=== PATIENT | female | born 1995 | race Caucasian/White ===

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

== ENCOUNTER 2018-07-01 20:42 | Emergency (ER) | payer SELFPAY ==
[2018-07-01 20:49] VITALS: BP 128/80
== END 2018-07-01 21:23 | disposition left against medical advice (07) ==
LOC: ED 20:42
DX: R10.9 Unspecified abdominal pain (principal); Z53.21 Procedure and treatment not carried out due to patient leaving prior to being seen by health care provider

== ENCOUNTER 2018-07-01 21:37 | Emergency (ER) | payer SELFPAY ==
--- NOTE | 2018-07-01 21:39 | UC ---
Abdominal Pain Female HPI - HPI Summary HPI Summary: nausea and burning in stomach, pepto and tums without relief--no fevrs or chills had gallbladder removed in 2016-she tells me this has been going on for a couple of years but getting worse when she eats spicy food - History of Current Complaint Chief Complaint: UCAbdominalPain Stated Complaint: ABD PAIN Time Seen by Provider: 07/01/18 21:50 Hx Obtained From: Patient Hx Last Menstrual Period: 06/22/18 ?: No Onset/Duration: Gradual Onset, Lasting Weeks Timing: Intermittent Episodes Lasting: - worse with spicy foods Severity Initially: Moderate Severity Currently: Moderate Location: Epigastric Radiates: No Character: Burning Aggravating Factor(s): Food Alleviating Factor(s): Nothing Associated Signs and Symptoms: Positive: Nausea Allergies/Adverse Reactions: Allergies Allergy/AdvReac Type Severity Reaction Status Date / Time No Known Allergies Allergy Verified 07/01/18 21:45 Home Medications: Home Medications Bismuth Subsalicylate [Pepto-Bismol] PRN 07/01/18 [History] Calcium Carbonate CHEW TAB* [Tums*] PRN 07/01/18 [History] PMH/Surg Hx/FS Hx/Imm Hx Previously Healthy: Yes - Surgical History Surgery Procedure, Year, and Place: gal bladder 2016 - Family History Known Family History: Positive: None - Social History Occupation: Unemployed Lives: With Family Alcohol Use: None Substance Use Type: None Smoking Status (MU): Former Smoker - Immunization History Most Recent Influenza Vaccination: unknown Most Recent Pneumonia Vaccination: never Review of Systems All Other Systems Reviewed And Are Negative: Yes Constitutional: Positive: Negative Skin: Positive: Negative Eyes: Positive: Negative ENT: Positive: Negative Respiratory: Positive: Negative Cardiovascular: Positive: Negative Gastrointestinal: Positive: Abdominal Pain, Nausea Genitourinary: Positive: Negative Motor: Positive: Negative Neurovascular: Positive: Negative Musculoskeletal: Positive: Negative Neurological: Positive: Negative Psychological: Positive: Negative Is Patient Immunocompromised?: No Physical Exam Triage Information Reviewed: Yes Appearance: Well-Appearing, No Pain Distress, Well-Nourished Vital Signs Reviewed: Yes Eye Exam: Normal Eyes: Positive: Conjunctiva Clear ENT Exam: Normal ENT: Positive: Normal ENT inspection, Hearing grossly normal. Negative: Trismus , Muffled voice, Hoarse voice, Dental tenderness Dental Exam: Normal Neck exam: Normal Neck: Positive: Supple, Nontender Respiratory Exam: Normal Respiratory: Positive: Chest non-tender, Lungs clear, Normal breath sounds, No respiratory distress, No accessory muscle use Cardiovascular Exam: Normal Cardiovascular: Positive: RRR, No Murmur, Pulses Normal, Brisk Capillary Refill Abdominal Exam: Other Abdomen Description: Positive: No Organomegaly, Soft, Other: - mid epigastric pain. Negative: CVA Tenderness (R), CVA Tenderness (L), Distended, Guarding, Hepatomegaly, McBurney's Point Tenderness Bowel Sounds: Positive: Present Musculoskeletal Exam: Normal Musculoskeletal: Positive: Strength Intact, ROM Intact, No Edema Neurological Exam: Normal Neurological: Positive: Alert, Muscle Tone Normal Psychological Exam: Normal Psychological: Positive: Normal Response To Family Skin Exam: Normal Re-Evaluation - Re-Evaluation First Eval Change: Improved - some relief Abd Pain Female Course/Dx - Course Course Of Treatment: zantac, gastritis diet follow with referal pcp - Differential Dx/Diagnosis Provider Diagnoses: gastritis Discharge - Sign-Out/Discharge Documenting (check all that apply): Patient Departure All imaging exams completed and their final reports reviewed: No Studies - Discharge Plan Condition: Stable Disposition: HOME Prescriptions: Ranitidine TAB (NF) [Zantac TAB (NF)] 150 mg PO BID #28 tab Patient Education Materials: Gastritis (ED), Diet for Stomach Ulcers and Gastritis (ED) Referrals: Care [facility] [Outside] [facility] [Outside] - Billing Disposition and Condition Condition: STABLE Disposition: Home
[2018-07-01 21:44] VITALS: BP 116/71
[2018-07-01] MEDS ORDERED: Al Hydrox/Mg Hydrox/Simet LIQ* 30 ML UDC PO ONE ×2 (21:52→22:00)
[2018-07-01] MEDS ORDERED: Lidocaine 2% VISCOUS* 15 ML UDC PO ONE (21:52)
== END 2018-07-01 22:26 | disposition home or self-care (01) ==
LOC: UCEAST 21:37
DX: K29.70 Gastritis, unspecified, without bleeding (principal); Z87.891 Personal history of nicotine dependence
CPT/HCPCS: 81003; 84702; 87086; 99212; A9270-GY; G0463

== ENCOUNTER 2018-07-07 08:53 | Emergency (ER) | payer SELFPAY ==
[2018-07-07] MEDS ORDERED: Pantoprazole IV* 40 MG IV ONE (09:17)
[2018-07-07] MEDS ORDERED: NS 0.9% 1000 ML* 1,000 ML IV ONE (09:17)
[2018-07-07 09:35] LABS: ABS Basophils 0 10^3/ul (0-0.2); ABS Eosinophils 0.1 10^3/ul (0-0.6); ABS Lymphocytes 2.4 10^3/ul (1.0-4.8); ABS Monocytes 0.8 10^3/ul (0-0.8); ABS Neutrophils 5.2 10^3/ul (1.5-7.7); ABS Nucleated RBC 0 10^3/ul; Eosinophil % 1.6 % (0-6); Hematocrit 43 % (35-47); Hemoglobin 14.6 g/dl (12.0-16.0); Lymphocyte % 28.5 % (25-47); Mean Corpuscular HGB Conc 34 g/dl (31-36); Mean Corpuscular Hemoglobin 31 pg (27-31); Mean Corpuscular Volume 89 fL (80-97); Mean Platelet Volume 8.6 fL (7.4-10.4); Nucleated Red Blood Cells % 0.1; Platelet Count 237 10^3/ul (150-450); Red Cell Distribution Width 13 % (10.5-15); White Blood Count 8.6 10^3/ul (3.5-10.8)
[2018-07-07 10:04] LABS: EGFR Non-African American 121.5 (>60)
[2018-07-07] MEDS ORDERED: Al Hydrox/Mg Hydrox/Simet LIQ* 30 ML UDC PO ONE (10:04)
[2018-07-07] MEDS ORDERED: Lidocaine 2% VISCOUS* 15 ML UDC PO ONE (10:04)
--- NOTE | 2018-07-07 10:28 | ED ---
GI/ HPI - HPI Summary HPI Summary: 23-year-old female presents with epigastric pain on-and-off for the past year. She states it has gotten more constant. She was seen in urgent care couple a days ago and prescribed Pepcid but it did not due much. She states she has not followed up with anyone about this. She admits occasional nausea vomiting. She admits to decreased appetite. No urinary symptoms. No diarrhea or constipation. No abnormal vaginal discharge. she admits to some bright red blood in stool. Nothing makes the pain better or worse. She has had her gallbladder removed. She has no medical conditions. - History of Current Complaint Chief Complaint: EDAbdPain Time Seen by Provider: 07/07/18 09:06 Stated Complaint: ABD PAIN/RECTAL BLEEDING Hx Last Menstrual Period: 06/22/18 Pain Intensity: 8 - Allergy/Home Medications Allergies/Adverse Reactions: Allergies Allergy/AdvReac Type Severity Reaction Status Date / Time No Known Allergies Allergy Verified 07/01/18 21:45 PMH/Surg Hx/FS Hx/Imm Hx Endocrine/Hematology History: Denies: Hx Anticoagulant Therapy Respiratory History: Reports: Hx Asthma Psychiatric History: Reports: Hx Depression - Post Depression prescribed zoloft - Surgical History Surgery Procedure, Year, and Place: 2015 Infectious Disease History: No Infectious Disease History: Denies: Traveled Outside the [place] in Last 30 Days - Family History Known Family History: Positive: None - Social History Alcohol Use: Rare Substance Use Type: Reports: Marijuana Substance Use Comment - Amount & Last Used: 07/06/18 Smoking Status (MU): Light Every Day Tobacco Smoker Type: Cigarettes Amount Used/How Often: 1 PPD & VAPES Review of Systems Negative: Fever Negative: Chest Pain Negative: Shortness Of Breath Positive: Abdominal Pain, Vomiting, Nausea. Negative: Diarrhea All Other Systems Reviewed And Are Negative: Yes Physical Exam Triage Information Reviewed: Yes Vital Signs On Initial Exam: Initial Vitals Temp Pulse Resp BP Pulse Ox 96.7 F 59 20 138/65 97 07/07/18 08:56 07/07/18 08:56 07/07/18 08:56 07/07/18 08:56 07/07/18 08:56 Vital Signs Reviewed: Yes Appearance: Positive: Well-Appearing Skin: Positive: Warm, Dry Head/Face: Positive: Normal Head/Face Inspection Eyes: Positive: Normal, Conjunctiva Clear ENT: Positive: Pharynx normal Respiratory/Lung Sounds: Positive: Clear to Auscultation, Breath Sounds Present Cardiovascular: Positive: Normal, RRR Abdomen Description: Positive: Soft, Other: - tenderness epigastric region, hemorrhoids seen, no blood on rectal Bowel Sounds: Positive: Present Musculoskeletal: Positive: Normal Neurological: Positive: Normal Psychiatric: Positive: Normal Diagnostics - Vital Signs Vital Signs Temp Pulse Resp BP Pulse Ox 07/07/18 08:56 96.7 F 59 20 138/65 97 - Laboratory Lab Results: Lab Results 07/07/18 07/07/18 Range/Units 09:20 09:20 WBC 8.6 (3.5-10.8) 10^3/ul RBC 4.80 (4.00-5.40) 10^6/ul Hgb 14.6 (12.0-16.0) g/dl Hct 43 (35-47) % MCV 89 (80-97) fL MCH 31 (27-31) pg MCHC 34 (31-36) g/dl RDW 13 (10.5-15) % Plt Count 237 (150-450) 10^3/ul MPV 8.6 (7.4-10.4) fL Neut % (Auto) 60.0 (38-83) % Lymph % (Auto) 28.5 (25-47) % [place] % (Auto) 9.6 H (0-7) % Eos % (Auto) 1.6 (0-6) % Baso % (Auto) 0.3 (0-2) % Absolute Neuts (auto) 5.2 (1.5-7.7) 10^3/ul Absolute Lymphs (auto) 2.4 (1.0-4.8) 10^3/ul Absolute Monos (auto) 0.8 (0-0.8) 10^3/ul Absolute Eos (auto) 0.1 (0-0.6) 10^3/ul Absolute Basos (auto) 0 (0-0.2) 10^3/ul Absolute Nucleated RBC 0 10^3/ul Nucleated RBC % 0.1 Sodium 138 (135-145) mmol/L Potassium 4.0 (3.5-5.0) mmol/L Chloride 109 (101-111) mmol/L Carbon Dioxide 25 (22-32) mmol/L Anion Gap 4 (2-11) mmol/L BUN 11 (6-24) mg/dL Creatinine 0.62 (0.51-0.95) mg/dL Est GFR ( Amer) 147.0 (>60) Est GFR (Non-Af Amer) 121.5 (>60) BUN/Creatinine Ratio 17.7 (8-20) Glucose 106 H (70-100) mg/dL Calcium 9.2 (8.6-10.3) mg/dL Total Bilirubin 0.80 (0.2-1.0) mg/dL AST 16 (13-39) U/L ALT 12 (7-52) U/L Alkaline Phosphatase 63 (34-104) U/L C-Reactive Protein 5.12 (<8.01) mg/L Total Protein 6.6 (6.4-8.9) g/dL Albumin 4.1 (3.2-5.2) g/dL Globulin 2.5 (2-4) g/dL Albumin/Globulin Ratio 1.6 (1-3) Lipase < 10 L (11.0-82.0) U/L Beta HCG, Quant < 0.60 mIU/mL Result Diagrams: 07/07/18 09:20 07/07/18 09:20 Lab Statement: Any lab studies that have been ordered have been reviewed, and results considered in the medical decision making process. Re-Evaluation - Re-Evaluation First Eval Re-Evaluation Time: 10:48 Change: Improved GIGU Course/Dx - Course Course Of Treatment: 23-year-old female presents with epigastric pain on-and- off for the past year. She states it has gotten more constant. She was seen in urgent care couple a days ago and prescribed Pepcid but it did not due much. She states she has not followed up with anyone about this. She admits occasional nausea vomiting. She admits to decreased appetite. No urinary symptoms. No diarrhea or constipation. No abnormal vaginal discharge. she admits to some bright red blood in stool. Nothing makes the pain better or worse. She has had her gallbladder removed. She has no medical conditions. On exam with epigastric tenderness. Nontender in the right upper quadrant. wbc normal. h/h normal. hemoccult normal and hemorrhoids seen. LFTs normal so do not suspect to cholelithdolithasis. will try with coarse of omperazole and GI consult in future recommended. Patient understands agrees with plan. - Diagnoses Differential Diagnoses - Female: Cholelithiasis, Gastritis, Gastroenteritis ( Viral) Provider Diagnoses: Epigastric pain Discharge - Sign-Out/Discharge Documenting (check all that apply): Patient Departure - Discharge Plan Condition: Good Disposition: HOME Prescriptions: Omeprazole CAP* [Prilosec CAP* 20 MG] 20 mg PO DAILY #14 cap.dr Patient Education Materials: Diet for Stomach Ulcers and Gastritis (ED) Referrals: Mary Jane Boswell MD [Medical Doctor] - Additional Instructions: Take omeprazole once a day Avoid acidic foods Elevated head of bed Stay upright for at least 30 mins after eating Follow up with GI establish care with primary Return to ED if develop any new or worsening symptoms - Billing Disposition and Condition Condition: GOOD Disposition: Home
[2018-07-07 11:46] VITALS: BP 120/61
== END 2018-07-07 11:45 | disposition home or self-care (01) ==
LOC: ED 08:53
DX: R10.13 Epigastric pain (principal)
CPT/HCPCS: 36415; 80053; 82272; 83690; 84702; 85025; 86140; 96361; 96374; 99282; A9270-GY

== ENCOUNTER 2018-12-27 15:39 | Emergency (ER) | payer OTHER ==
--- NOTE | 2018-12-27 16:50 | ED ---
Throat Pain/Nasal Congestion - HPI Summary HPI Summary: A 23 y/o F presents to ED with c/o bilateral ear pain onset a few days ago and worsening. Initially, her R ear hurt, and today her L ear is painful. Associated sx: jaw pain, neck pain. She denies sore throat, recent illness. She has had previous ear issues, but she says it's been many years; however, she mentions a month ago, she heard a pop in her R ear and then was unable to hear out of it for a few weeks. She sees Dr. Sauceda, PCP. - History of Current Complaint Chief Complaint: EDEarPain Time Seen by Provider: 12/27/18 16:46 Hx Obtained From: Patient, Medical Records Onset/Duration: Gradual Onset, Lasting Days, Still Present Severity: Moderate - Allergies/Home Medications Allergies/Adverse Reactions: Allergies Allergy/AdvReac Type Severity Reaction Status Date / Time No Known Allergies Allergy Verified 07/01/18 21:45 Home Medications: Home Medications Ibuprofen 800 mg PO Q6H PRN 12/27/18 [History Confirmed 12/27/18] PMH/Surg Hx/FS Hx/Imm Hx Previously Healthy: No Endocrine/Hematology History: Denies: Hx Anticoagulant Therapy Respiratory History: Reports: Hx Asthma EENT History: Reports: Other - ear problems Psychiatric History: Reports: Hx Depression - Post Depression prescribed zoloft - Surgical History Surgery Procedure, Year, and Place: 2015 Infectious Disease History: No Infectious Disease History: Denies: Traveled Outside the [place] in Last 30 Days - Family History Known Family History: Positive: Hypertension - father - Social History Occupation: Unemployed Lives: Dormitory/Roommates Alcohol Use: Rare Hx Substance Use: Yes Substance Use Type: Reports: Marijuana Substance Use Comment - Amount & Last Used: 07/06/18 Hx Tobacco Use: Yes Smoking Status (MU): Light Every Day Tobacco Smoker Type: Cigarettes Amount Used/How Often: 1 PPD & VAPES Review of Systems ENT: Other - pos: jaw pain Positive: Ear Ache - bilateral. Negative: Sore Throat Musculoskeletal: Other - pos: neck pain All Other Systems Reviewed And Are Negative: Yes Physical Exam - Summary Physical Exam Summary: Appearance: The patient is well-nourished in no acute distress and in no acute pain. Skin: The skin is warm and dry and skin color reflects adequate perfusion. HEENT: The head is normocephalic and atraumatic. The pupils are equal and reactive. The conjunctivae are clear and without drainage. Nares are patent and without drainage. Mouth reveals moist mucous membranes and the throat is without erythema and exudate. The external ears are intact. The ear canals are patent and without drainage. The tympanic membranes are mildly erythematous. Neck: The neck is supple with full range of motion. Tenderness to posterior cervical lymphadenopathy, worse on R than L. There are no carotid bruits. There is no neck vein distension. Respiratory: Chest is non-tender. Lungs are clear to auscultation and breath sounds are symmetrical and equal. Cardiovascular: Heart is regular rate and rhythm. There is no murmur or rub auscultated. There is no peripheral edema and pulses are symmetrical and equal. Abdomen: The abdomen is soft and non-tender. There are normal bowel sounds heard in all four quadrants and there is no organomegaly palpated. Musculoskeletal: There is no back tenderness noted. Extremities are non-tender with full range of motion. There is good capillary refill. There is no peripheral edema or calf tenderness elicited. Neurological: Patient is alert and oriented to person, place and time. The patient has symmetrical motor strength in all four extremities. Cranial nerves are grossly intact. Deep tendon reflexes are symmetrical and equal in all four extremities. Psychiatric: The patient has an appropriate affect and does not exhibit any anxiety or depression. Triage Information Reviewed: Yes Vital Signs On Initial Exam: Initial Vitals Temp Pulse Resp BP Pulse Ox 98.7 F 83 16 149/87 97 12/27/18 15:49 12/27/18 15:49 12/27/18 15:49 12/27/18 15:49 12/27/18 15:49 Vital Signs Reviewed: Yes Diagnostics - Vital Signs Vital Signs Temp Pulse Resp BP Pulse Ox 12/27/18 15:49 98.7 F 83 16 149/87 97 - Laboratory Lab Statement: Any lab studies that have been ordered have been reviewed, and results considered in the medical decision making process. EENT Course/Dx - Course Course Of Treatment: Ms. Del Angel was nontoxic in appearance with stable vitals. She was found to have tender posterior cervical lymphadenopathy worse on the right than the left her TMs are both mildly erythematous and this may be the source. I will treat her with antibiotics and recommend close follow-up if not improving. - Diagnoses Provider Diagnoses: Otitis media Discharge - Sign-Out/Discharge Documenting (check all that apply): Patient Departure - D/C Patient Received Moderate/Deep Sedation with Procedure: No - Discharge Plan Condition: Stable Disposition: HOME Prescriptions: Amoxicillin/Clavulanate TAB* [Augmentin TAB 875*] 875 mg PO BID #20 tab Patient Education Materials: Amoxicillin/Clavulanate Potassium (By mouth), Serous Otitis Media (ED) Referrals: Care [facility] [Outside] - 1 Week Additional Instructions: Please return to the ED if you experience new or worsening symptoms. Follow up with your primary care provider next week if not improved. - Billing Disposition and Condition Condition: STABLE Disposition: Home - Attestation Statements Document Initiated by Theodore: Yes Documenting Scribe: Obed Mckeon Provider For Whom Scribe is Documenting (Include Credential): Dr. Buzz Sage MD Scribe Attestation: Obed Ramey scribed for Dr. Buzz Sage MD on 12/27/18 at 1827. Scribe Documentation Reviewed: Yes Provider Attestation: The documentation as recorded by the Obed hodge accurately reflects the service I personally performed and the decisions made by , Dr. Buzz Sage MD Status of Scribe Document: Viewed
[2018-12-27 17:09] VITALS: BP 116/83
== END 2018-12-27 17:08 | disposition home or self-care (01) ==
LOC: ED 15:39
DX: H66.93 Otitis media, unspecified, bilateral (principal); F17.210 Nicotine dependence, cigarettes, uncomplicated
CPT/HCPCS: 99281

== ENCOUNTER 2019-01-27 15:23 | Emergency (ER) | payer OTHER ==
--- OUTSIDE RECORDS SUMMARY | 2019-01-27 16:27 | XMS REPORT | Continuity of Care Document ---
:1995 External Reference #:[id number] Author Name Hilary Taylor Care Team Providers Name Role Phone Iam Sauceda NP Primary Care Physician Unavailable Payers Date Identification Numbers Payment Provider Subscriber Policy Number: [id number] Amadeo Del Angel PayID: [id number] [address] [place] [address] Social History Type Date Description Comments Sex Unknown Tobacco Use Start: Unknown Heavy tobacco smoker (more than 10 cigarettes/day) Smoking Status Reviewed: 01/08/19 Heavy tobacco smoker (more than 10 cigarettes/day) Allergies, Adverse Reactions, Alerts Active Allergies Reaction Severity Comments Date Clindamycin gives her yeast infection 01/08/2019 Medications Active Medications SIG Qnty Indications Ordering Date Provider Nicotine Transdermal apply one patch 14units F17.210 Terri Souza, 01/08 System Step 2 daily for two DO weeks 14mg/24HR Patches 24HR Nicotine Transdermal apply one patch 14units F17.210 Terri Souza, 01/08 System Step 3 daily for two DO weeks After you've 7mg/24HR Patches completed the 14 24HR days of the higher dose Trazodone HCL 1 by mouth at 14tabs F32.9 Terir Souza, 01/08/2019 50mg bedtime DO Tablets Hydroxyzine HCL take one tab daily 14tabs F32.9 Terri Souza, 01/08/2019 50mg as needed for DO Tablets anxiety History Medications Trazodone HCL 1 by mouth at 30tabs F32.9 Terri oSuza, 01/08/2019 - 50mg bedtime as needed DO 01/08/2019 Tablets for sleep Vital Signs Date Vital Result Comment 01/08/2019 2:20pm Weight 233.00 lb Heart Rate 64 /min BP Systolic 114 mmHg BP Diastolic 64 mmHg Respiratory Rate 16 /min Body Temperature 98.7 F Pain Level 7 abd O2 % BldC Oximetry 98 % Plan of Treatment Future Appointment(s):01/24/2019 10:40 am - Terri Souza DO at [facility]02/13/2019 1:00 pm - Iam Sauceda NP at [facility] [place]74/21/2019 - Terri Souza DOF32.9 Major depressive disorder, single episode, unspecifiedNew Medication:Trazodone HCL 50 mg - 1 by mouth at bedtimeHydroxyzine HCL 50 mg - take one tab daily as needed for anxietyTrazodone HCL 50 mg - 1 by mouth at bedtime as needed for sleepReferral: [facility], Mental Health/CounselorFollow up:come back in 2 weeks or sooner as needed [place] [facility] [phone]:CALL US if you are not getting better, or if you think you are getting oqxzxZ18.210 Nicotine dependence, cigarettes, uncomplicatedNew Medication:Nicotine Transdermal System Step 2 14 mg/24HR - apply one patch daily for two weeksNicotine Transdermal System Step 3 7 mg/24HR - apply one patch daily for two weeks After you've completed the 14 days of the higher dose
[2019-01-27] MEDS ORDERED: Ibuprofen TAB* 800 MG PO ONE (17:26)
[2019-01-27 17:37] VITALS: BP 118/67
[2019-01-27 18:07] LABS: HIV 4th Generation Negative (Negative)
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
== END 2019-01-27 17:34 | disposition home or self-care (01) ==
LOC: ED 15:23
DX: S20.222A Contusion of left back wall of thorax, initial encounter (principal); S70.12XA Contusion of left thigh, initial encounter; Y04.8XXA Assault by other bodily force, initial encounter; Y92.9 Unspecified place or not applicable; Z88.1 Allergy status to other antibiotic agents; F17.210 Nicotine dependence, cigarettes, uncomplicated
CPT/HCPCS: 36415; 87389; 99282; A9270-GY

== ENCOUNTER 2019-01-28 19:46 | Inpatient (IN) | payer OTHER ==
[2019-01-28 20:47] LABS: ABS Eosinophils 0.1 10^3/ul (0-0.6); ABS Lymphocytes 2.6 10^3/ul (1.0-4.8); ABS Monocytes 0.7 10^3/ul (0-0.8); ABS Neutrophils 4.5 10^3/ul (1.5-7.7); Eosinophil % 1.6 %; Hematocrit 42 % (35-47); Hemoglobin 14.2 g/dL (12.0-16.0); Lymphocyte % 32.7 %; Mean Corpuscular HGB Conc 34 g/dL (31-36); Mean Corpuscular Hemoglobin 30 pg (27-31); Mean Corpuscular Volume 90 fL (80-97); Mean Platelet Volume 8.2 fL (7.4-10.4); Platelet Count 231 10^3/uL (150-450); Red Blood Count 4.68 10^6 /uL (3.70-4.87); Red Cell Distribution Width 13 % (10-15); White Blood Count 8.1 10^3/uL (3.5-10.8)
[2019-01-28 21:02] LABS: ALT 11 U/L (7-52); AST 12 U/L (13-39); Albumin 3.9 g/dL (3.2-5.2); Albumin/Globulin Ratio 1.7 (1-3); Alkaline Phosphatase 57 U/L (34-104); Anion Gap 5 mmol/L (2-11); BUN/Creatinine Ratio 14.7 (8-20); Blood Urea Nitrogen 10 mg/dL (6-24); CO2 Carbon Dioxide 26 mmol/L (22-32); Chloride 109 mmol/L (101-111); EGFR African American 132.2 (>60); EGFR Non-African American 109.2 (>60); Globulin 2.3 g/dL (2-4); Glucose 96 mg/dL (70-100); Potassium 3.7 mmol/L (3.5-5.0); Sodium 140 mmol/L (135-145); Total Protein 6.2 g/dL (6.4-8.9)
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
[2019-01-28 21:08] LABS: Acetaminophen < 15 mcg/mL; Alcohol < 10 mg/dL (<10); Salicylate < 2.50 mg/dL (<30)
[2019-01-28 21:09] LABS: HCG Pregnancy < 0.60 mIU/mL
[2019-01-28 21:25] LABS: TSH (Thyroid Stimulating Horm) 1.15 mcIU/mL (0.34-5.60)
[2019-01-29] MEDS ORDERED: Nicotine PATCH 21 MG/24 HR* PATCH TRANSDERM ONE (02:07)
[2019-01-29] MEDS ORDERED: Acetaminophen TAB* 325 MG ONE (02:41)
[2019-01-29] MEDS ORDERED: Al Hydrox/Mg Hydrox/Simet LIQ* 30 ML UDC PO PRN (03:49)
[2019-01-29] MEDS: Acetaminophen TAB* 325 MG PO PRN ×3 (10:15→18:16)
[2019-01-29] MEDS: Vitamin THERAPEUTIC TAB PO SCH (10:16)
[2019-01-29] MEDS: hydrOXYzine HCL TAB* 50 MG PO SCH (10:19)
--- NOTE | 2019-01-29 13:31 | HP ---
H&P (Free Text) History and Physical: Justification for admission: Immediate Safety. CC " I cut my wrist" The patient was brought to [facility] after making a suicide attempt by cutting her wrist in attempt to end her life. She reported being determined to . She cut her wrist horizontally because she heard that the artery runs that direction and would increase her chances to . Current stressors include having her children live with her mother and recently having an . She denied access to firearms or stockpiles of medications. She reports a fluctuation of sleep between excessive and no sleep. The patient denied homicidal ideation intent or plan. The patient denied auditory and/ or visual hallucinations. MDD Reported feeling depressed and having diminished interests which were found to be enjoyable in the past. She reported feeling empty inside with feelings of hopelessness, and worthlessness. Lately she has had overwhelming feelings of guilt and decreased concentration. Bipolar About a week ago she reported having 3 days where she did not sleep, and stayed up cleaning the house., having racing thoughts and rapid speech. She reported moods of highs and lows. In this time she reported having a persistent abundance of energy most of the day without the use of energy drinks, stimulants , or recreational drug use. Following the 3 days of experiencing this she reported becoming depressed. Anxiety Denied having symptoms of anxiety such as having times where heart feels that it is beating out of chest , sweaty palms, or shallow breathing. But decribed a time where she woke up in panic after a nightmare of her children being killed. Psychosis Does not endorse hearing things that other people do not hear or seeing things other people do not see. Denied feeling that TV is making references. Denied feeling that people are spying , following , or reading their thoughts. Phobias: Patient denied having excessive fear of a particular thing or situation. Eating disorders: Patient denied having excessive eating habits or feelings of guilt after eating. Denied repeated episodes of self induced vomiting after eating. PTSD Denied flashbacks, nightmares and avoidance of a prior traumatic event. PAST PSYCHIATRIC HISTORY: Prior Diagnosis : Major depressive disorder History of past Psychiatric Hospitalizations: No prior psychiatric admission. History of past suicide/homicide attempts : Denied past suicide attempts. Denied past homicidal incidents. Outpatient follow-up: Dr. Loomis Medications: Past trials of medications include hydroxyzine 50mg PRN and trazodone 100mg qhs Guardianship: None. FAMILY HISTORY: - Suicide: Denied family history of suicide. - Mental illness: Aunt Dx. w/ Bipolar disorder. Mother Dx with Bipolar disorder with the type unknown - Substance abuse: Mother and father have a past history of using heroin. SUBSTANCE ABUSE HISTORY: Denied using alcohol, tobacco, heroin cocaine or other illicit substances. Denied recreationally abusing pills. Denied past Substance abuse treatment. - EtOH: Drinks 3 glasses of wine per sitting / 3 times a month - Tobacco: smokes 2PPD - Cannabis: Uses daily - Heroin: Denied using recently or in the past. - Cocaine: Denied using recently or in the past. - Substance abuse treatment: Denied past substance abuse treatment SOCIAL HISTORY: Denied a history of abuse of physical and or sexual abuse. She works at [employer]. She was raised by her mother and step- father. Currently lives with her boyfriends family. She has 2 children and is not . - Legal history: Denied - service history: Denied PAST MEDICAL HISTORY: Asthma. Denied heart disease, diabetes, cancer and/ or other medical conditions. - Allergies: Clindamycin Physical Exam: Please see ED note Mental Status Exam on Admission APPEARANCE : 23 year old female who appears stated age. Patient is disheveled BEHAVIOR: Cooperative , calm EYE CONTACT: Fair PSYCHOMOTOR ACTIVITY: No psychomotor agitation or retardation. MOVEMENTS: No abnormal movements observed. SPEECH : Normal rate, rhythm, volume and tone. MOOD : "Sad " AFFECT : Type is depressed Range is restricted with shallow depth Mood Congruent Labile THOUGHT PROCESS: Formulated and organized in a logical, linear goal directed manner. No flight of ideas, neologism (made up words) , perseveration , tangential , loose associations , or circumstantiality. THOUGHT CONTENT: no delusions, obsessions, phobias or preoccupations. PERCEPTION: No current auditory or visual hallucinations. Doesnt appear to be responding to internal cues. No evidence of depersonalization , de-realization, or illusions SUICIDALITY Recent suicide attempt HOMICIDALITY Denied homicidal ideation, intent or plan. Insight/judgment: Fair insight and judgment ORIENTATION: Oriented to self, location, and time. Diagnosis on Admission: Bipolar II disorder, current depressive episode. Tobacco use disorder Assessment: 23year old female with history of major depressive disorder came to the hospital following a suicide attempt by cutting her wrist and was admitted to the [facility] at [facility]. Plan #Admit to BSU, Q15 minute observation. Start regular diet. Encourage participation in activities on the milieu. #Patient evaluated in ED and was determined by the emergency room Physician to be medically fit for admission to the BSU. # Justification for Admission: For immediate safety per outlined in the [facility] Hygiene Code. # The patient requires inpatient admission at this time to assure safety, receive treatment and work toward stabilization. # Labs ordered: CBC, CMP, UDS, TSH, HBA1c, TSH, Toxicology screen, Urine analysis, and lipid profile. # B-HCG was ordered and results are negative. # Obtain collateral information once release is signed. # Collaboration with Social Work to assist with disposition and after care. # Start lamotrigine 25mg daily for 1st week. To monitor for rash. Tobacco use disorder: nicotine supplement offered and put in place. #Goals before discharge include: To eliminate/ reduce suicidal ideation The risks, benefits, and alternative treatment options were discussed as well as of the risks of refusing treatment. After this discussion and an acknowledgement of this understanding was made. A risk/ benefit assessment of treatment was considered and discussed with the patient. When comparing the risks of treatment with the dangers of not receiving treatment, the benefits of treatment outweigh the treatment risks at this time. Risks of allergy, suicidal ideation, behavioral changes, dystonia, rashes, electrolyte imbalances, movement disorders, cardiac conduction changes, serotonin syndrome, metabolic risks were among some of the risks discussed. Acetaminophen (Tylenol Tab*) 650 mg PO Q4H PRN PRN Reason: PAIN or TEMP > 101 F Last Admin: 01/29/19 10:15 Dose: 650 mg Al Hydrox/Mg Hydrox/Simethicone (Maalox Plus*) 30 ml PO Q4H PRN PRN Reason: INDIGESTION Hydroxyzine HCl (Atarax Tab*) 50 mg PO DAILY [facility] Last Admin: 01/29/19 10:19 Dose: Not Given Multivitamins (Theragran Tab*) 1 tab PO DAILY [facility] Last Admin: 01/29/19 10:16 Dose: 1 tab Nicotine Polacrilex (Nicotine Gum*) 2 mg PO Q2H PRN PRN Reason: CRAVINGS Trazodone HCl (Desyrel Tab*) 100 mg PO 2100 [facility] 01/28/19 01/28/19 20:40 20:40 WBC 8.1 RBC 4.68 Hgb 14.2 Hct 42 MCV 90 MCH 30 MCHC 34 RDW 13 Plt Count 231 MPV 8.2 Neut % (Auto) 56.4 Lymph % (Auto) 32.7 Stoddard % (Auto) 8.9 Eos % (Auto) 1.6 Baso % (Auto) 0.4 Absolute Neuts (auto) 4.5 Absolute Lymphs (auto) 2.6 Absolute Monos (auto) 0.7 Absolute Eos (auto) 0.1 Absolute Basos (auto) 0.0 Absolute Nucleated RBC 0.0 Nucleated RBC % 0.0 Sodium 140 Potassium 3.7 Chloride 109 Carbon Dioxide 26 Anion Gap 5 BUN 10 Creatinine 0.68 Est GFR ( Amer) 132.2 Est GFR (Non-Af Amer) 109.2 BUN/Creatinine Ratio 14.7 Glucose 96 Calcium 9.0 Total Bilirubin 0.40 AST 12 L ALT 11 Alkaline Phosphatase 57 Total Protein 6.2 L Albumin 3.9 Globulin 2.3 Albumin/Globulin Ratio 1.7 TSH 1.15 Beta HCG, Quant < 0.60 Salicylates < 2.50 Acetaminophen < 15 Serum Alcohol < 10
[2019-01-29] MEDS: lamoTRIgine TAB(*) 25 MG PO SCH (14:16)
[2019-01-29] MEDS: Nicotine* 2MG (FRUIT FLAVOR) GUM PO PRN ×2 (16:54→20:04)
[2019-01-29] MEDS: traZODone TAB* 100 MG PO SCH (20:04)
[2019-01-30] MEDS: Nicotine* 2MG (FRUIT FLAVOR) GUM PO PRN ×4 (07:44→20:59)
[2019-01-30] MEDS: Acetaminophen TAB* 325 MG PO PRN ×2 (07:48→14:44)
[2019-01-30 08:13] LABS: HDL Cholesterol 39.2 mg/dL
--- NOTE | 2019-01-30 08:32 | PN ---
Subjective - Subjective Date of Service: 01/30/19 Service Type: 83818 Hosp care 35 min high complexity Subjective: Nursing Report: Patient was visible on unit, no chemical restraints or PRNs. Slept overnight without incident. She is attending group activities. CC: "Better today Patient was seen and evaluated in the common room. She said being in the hospital is not for her and said that she regrets "making a stupid decision". In addition she stated that being away from her children is hard and would like to video chat with them. The patient reported feeling safe on the unit and is interacting with peers. Her boyfriend visited overnight and her father has been contacting the unit requesting to visit. She reported no rash or skin changes. . Objective - General Observations Appearance: Disheveled Stature: Overweight Posture: Slumped Eye Contact: Average Behavior/Activity: WNL - Interaction Observations Attitude Towards Examiner: Cooperative Stated Mood: Dysphoric Affect: Blunted Speech Pattern/Tone: Clear Thought Process: Coherent Perception: WNL Thought Content: Depressive Hallucination Type: None Delusion Type: None - Cognitive Function Orientation: A&O x 4 Level of Consciousness: Awake - Medication Compliance Cooperative with Inpatient Medication Regimen: Yes - Group Participation Participates in Group Activities: Yes Assessment - Assessment Merits Inpatient Hospitalization: For Immediate Safety Clinical Impression: 23 year old female presented to the ER after making a suicide attempt by cutting her wrist with a razor Plan - Plan Treatment Plan: Name: MAYANK PAYTON Birthdate: 1995 [id number] Plan # Q30 minute observation, staff pass, comfort room and can use phone at staff discretion to talk with children # The patient requires inpatient admission at this time to assure safety, receive treatment and work toward stabilization. # Obtain collateral information once release is signed. Refusing ROSSI for father # Collaboration with Social Work to assist with disposition and after care. # Continue lamotrigine 25mg daily for 1st week. To monitor for rash. # Albuterol inhaler #Boyfriend to visit tomorrow. Tobacco use disorder: nicotine supplement offered and put in place. #Goals before discharge include: To eliminate/ reduce suicidal ideation Sodium 140 mmol/L (135-145) 01/28/19 20:40 Potassium 3.7 mmol/L (3.5-5.0) 01/28/19 20:40 BUN 10 mg/dL (6-24) 01/28/19 20:40 Creatinine 0.68 mg/dL (0.51-0.95) 01/28/19 20:40 Hemoglobin A1c 5.0 % (4.0-5.6) 01/30/19 07:20 Calcium 9.0 mg/dL (8.6-10.3) 01/28/19 20:40 AST 12 U/L (13-39) L 01/28/19 20:40 ALT 11 U/L (7-52) 01/28/19 20:40 Triglycerides 142 mg/dL 01/30/19 07:20 Cholesterol 124 mg/dL 01/30/19 07:20 LDL Cholesterol 56 mg/dL 01/30/19 07:20 Vital Signs Temp Pulse Resp BP Pulse Ox 97.2 F 60 16 128/48 100 01/30/19 06:00 01/30/19 06:00 01/30/19 08:28 01/30/19 06:00 01/30/19 06:00 Continued Medication Management: Continue Outpt Medication Medications: Current Medications Acetaminophen (Tylenol Tab*) 650 mg PO Q4H PRN PRN Reason: PAIN or TEMP > 101 F Last Admin: 01/30/19 07:48 Dose: 650 mg Al Hydrox/Mg Hydrox/Simethicone (Maalox Plus*) 30 ml PO Q4H PRN PRN Reason: INDIGESTION Hydroxyzine HCl (Atarax Tab*) 50 mg PO DAILY [facility] Last Admin: 01/29/19 10:19 Dose: Not Given Lamotrigine (Lamictal Tab(*)) 25 mg PO DAILY [facility] Last Admin: 01/29/19 14:16 Dose: 25 mg Multivitamins (Theragran Tab*) 1 tab PO DAILY [facility] Last Admin: 01/29/19 10:16 Dose: 1 tab Nicotine (Nicotine Patch 21 Mg/24 Hr*) 1 patch TRANSDERM DAILY [facility] Nicotine Polacrilex (Nicotine Gum*) 2 mg PO Q2H PRN PRN Reason: CRAVINGS Last Admin: 01/30/19 07:44 Dose: 2 mg Pharmacy Profile Note (Nicotine Patch Removal Note*) 1 note FOLLOW UP 2099 [facility] Trazodone HCl (Desyrel Tab*) 100 mg PO 2100 [facility] Last Admin: 01/29/19 20:04 Dose: 100 mg - Discharge Plan Discharge Plan: Inpatient Hospitalization
[2019-01-30] MEDS: hydrOXYzine HCL TAB* 50 MG PO SCH (08:49)
[2019-01-30] MEDS: Vitamin THERAPEUTIC TAB PO SCH (08:50)
[2019-01-30] MEDS: Nicotine PATCH 21 MG/24 HR* PATCH TRANSDERM SCH (08:50)
[2019-01-30] MEDS: lamoTRIgine TAB(*) 25 MG PO SCH (08:50)
[2019-01-30] MEDS ORDERED: Albuterol HFA INHALER* 8 gm MDI INH PRN (10:00)
[2019-01-30] MEDS: Nicotine Patch Removal NOTE FOLLOW UP SCH (16:30)
[2019-01-30] MEDS: traZODone TAB* 100 MG PO SCH (20:59)
[2019-01-31] MEDS: hydrOXYzine HCL TAB* 50 MG PO SCH (08:58)
[2019-01-31] MEDS: Nicotine PATCH 21 MG/24 HR* PATCH TRANSDERM SCH (08:58)
[2019-01-31] MEDS: lamoTRIgine TAB(*) 25 MG PO SCH (08:58)
[2019-01-31] MEDS: Vitamin THERAPEUTIC TAB PO SCH (09:01)
[2019-01-31] MEDS: Acetaminophen TAB* 325 MG PO PRN (11:02)
--- NOTE | 2019-01-31 12:50 | PN ---
Subjective - Subjective Date of Service: 01/31/19 Service Type: [id number] Hosp care 35 min high complexity Subjective: Nursing Report: Patient was visible on unit, no chemical restraints or PRNs. Slept overnight without incident. She is attending some group activities. CC: "I dont want to stay Patient was seen and evaluated today. She met with her boyfriend for a family meeting in the comfort room. She stated being upset that she has to stay longer and said that she plans to live with her step mother when she leaves. Her boyfriend mentioned that hydroxyzine and trazodone made her feel irritable and upset and isolate herself. She is requesting to have her father be placed on a do not allow to visit list. She denied side effects or skin changes. Objective - General Observations Appearance: Disheveled Appears Stated Age: Yes Stature: WNL, Overweight Posture: Slumped Eye Contact: Intermittent Behavior/Activity: Slowed - Interaction Observations Attitude Towards Examiner: Cooperative Attitude Towards Parent/Guardian: Positive Interaction Stated Mood: Dysphoric Affect: Blunted Speech Pattern/Tone: Clear Thought Process: Coherent Perception: WNL Thought Content: Self-Deprecatory Hallucination Type: None Delusion Type: None - Cognitive Function Orientation: A&O x 4 Level of Consciousness: Awake - Medication Compliance Cooperative with Inpatient Medication Regimen: Yes - Group Participation Participates in Group Activities: Partial Assessment - Assessment Clinical Impression: 23 year old female presented to the ER after making a suicide attempt by cutting her wrist with a razor Plan - Plan Treatment Plan: Name: MAYANK PAYTON Birthdate: 1995 [id number] Plan # Q30 minute observation, staff pass, comfort room and can use phone at staff discretion to talk with children # The patient requires inpatient admission at this time to assure safety, receive treatment and work toward stabilization. # Obtain collateral information once release is signed. Refusing ROSSI for father # Collaboration with Social Work to assist with disposition and after care. # Continue lamotrigine 25mg daily for 1st week. To monitor for rash. # Albuterol inhaler #Family meeting took place and she plans to live with her step mother D/C trazodone and hydroxyzine due to increased irritability Tobacco use disorder: nicotine supplement offered and put in place. #Goals before discharge include: To eliminate/ reduce suicidal ideation Sodium 140 mmol/L (135-145) 01/28/19 20:40 Potassium 3.7 mmol/L (3.5-5.0) 01/28/19 20:40 BUN 10 mg/dL (6-24) 01/28/19 20:40 Creatinine 0.68 mg/dL (0.51-0.95) 01/28/19 20:40 Hemoglobin A1c 5.0 % (4.0-5.6) 01/30/19 07:20 Calcium 9.0 mg/dL (8.6-10.3) 01/28/19 20:40 AST 12 U/L (13-39) L 01/28/19 20:40 ALT 11 U/L (7-52) 01/28/19 20:40 Triglycerides 142 mg/dL 01/30/19 07:20 Cholesterol 124 mg/dL 01/30/19 07:20 LDL Cholesterol 56 mg/dL 01/30/19 07:20 Vital Signs Temp Pulse Resp BP Pulse Ox 97.6 F 59 16 111/59 99 01/31/19 08:00 01/31/19 08:00 01/31/19 12:32 01/31/19 08:00 01/31/19 08:00 Continued Medication Management: Continue Outpt Medication Medications: Current Medications Acetaminophen (Tylenol Tab*) 650 mg PO Q4H PRN PRN Reason: PAIN or TEMP > 101 F Last Admin: 01/31/19 11:02 Dose: 650 mg Al Hydrox/Mg Hydrox/Simethicone (Maalox Plus*) 30 ml PO Q4H PRN PRN Reason: INDIGESTION Albuterol (Ventolin Hfa Inhaler*) 1 puff INH Q6H PRN PRN Reason: SOB/WHEEZING Hydroxyzine HCl (Atarax Tab*) 50 mg PO DAILY [facility] Last Admin: 01/31/19 08:58 Dose: 50 mg Lamotrigine (Lamictal Tab(*)) 25 mg PO DAILY [facility] Last Admin: 01/31/19 08:58 Dose: 25 mg Multivitamins (Theragran Tab*) 1 tab PO DAILY [facility] Last Admin: 01/31/19 09:01 Dose: Not Given Nicotine (Nicotine Patch 21 Mg/24 Hr*) 1 patch TRANSDERM DAILY [facility] Last Admin: 01/31/19 08:58 Dose: 1 patch Nicotine Polacrilex (Nicotine Gum*) 2 mg PO Q2H PRN PRN Reason: CRAVINGS Last Admin: 01/30/19 20:59 Dose: 2 mg Pharmacy Profile Note (Nicotine Patch Removal Note*) 1 note FOLLOW UP 2099 [facility] Last Admin: 01/30/19 16:30 Dose: 1 note Trazodone HCl (Desyrel Tab*) 100 mg PO 2099 [facility] Last Admin: 01/30/19 20:59 Dose: 100 mg - Discharge Plan Discharge Plan: Inpatient Hospitalization
[2019-01-31] MEDS: Nicotine* 2MG (FRUIT FLAVOR) GUM PO PRN ×2 (13:31→19:09)
[2019-01-31] MEDS: Ibuprofen TAB* 600 MG PO PRN (16:20)
[2019-01-31] MEDS: Melatonin 3 MG TAB PO SCH (21:12)
[2019-01-31] MEDS: Nicotine Patch Removal NOTE FOLLOW UP SCH (21:13)
[2019-02-01] MEDS: Ibuprofen TAB* 600 MG PO PRN ×3 (06:27→21:40)
[2019-02-01] MEDS: Vitamin THERAPEUTIC TAB PO SCH (08:19)
[2019-02-01] MEDS: lamoTRIgine TAB(*) 25 MG PO SCH (08:19)
[2019-02-01] MEDS: Nicotine PATCH 21 MG/24 HR* PATCH TRANSDERM SCH ×2 (08:19→13:13)
[2019-02-01] MEDS: Sertraline* 25 MG TAB PO SCH (09:34)
--- NOTE | 2019-02-01 11:12 | PN ---
Subjective - Subjective Date of Service: 02/01/19 Service Type: [id number] Hosp care 35 min high complexity Subjective: Nursing Report: Patient was visible on unit, no chemical restraints or PRNs. Slept overnight without incident. She is attending group activities. CC: "Better Patient was seen and evaluated today. She reported going to groups yesterday and was up eating breakfast. She confirmed doing well on zoloft in the past without activating manic features. She is requesting to have her father be placed on a do not allow to visit list. She denied side effects or skin changes. Objective - General Observations Appearance: Disheveled Appears Stated Age: Yes Stature: WNL, Overweight Posture: Slumped Eye Contact: Average Behavior/Activity: WNL - Interaction Observations Attitude Towards Examiner: Cooperative Stated Mood: Dysphoric Affect: Blunted Speech Pattern/Tone: Clear Thought Process: Coherent Perception: WNL Thought Content: Depressive Hallucination Type: None Delusion Type: None - Cognitive Function Orientation: A&O x 4 Level of Consciousness: Awake Cognition: WNL - Medication Compliance Cooperative with Inpatient Medication Regimen: Yes - Group Participation Participates in Group Activities: Yes Assessment - Assessment Clinical Impression: 23 year old female presented to the ER after making a suicide attempt by cutting her wrist with a razor Plan - Plan Treatment Plan: Name: MAYANK PAYTON Birthdate: 1995 [id number] Plan # Q30 minute observation, staff pass, comfort room and can use phone at staff discretion to talk with children # The patient requires inpatient admission at this time to assure safety, receive treatment and work toward stabilization. # Obtained collateral information # Collaboration with Social Work to assist with disposition and after care. # Continue lamotrigine 25mg daily for 1st week. To monitor for rash. # Albuterol inhaler in place #Family meeting took place and she plans to live with her step mother upon discharge. # Start zoloft 25mg daily , according to collateral and herself she has had prior favorable response without manic activation. # D/C trazodone and hydroxyzine due to increased irritability Tobacco use disorder: nicotine supplement offered and put in place. #Goals before discharge include: To eliminate/ reduce suicidal ideation #Tentative discharge Monday Sodium 140 mmol/L (135-145) 01/28/19 20:40 Potassium 3.7 mmol/L (3.5-5.0) 01/28/19 20:40 BUN 10 mg/dL (6-24) 01/28/19 20:40 Creatinine 0.68 mg/dL (0.51-0.95) 01/28/19 20:40 Hemoglobin A1c 5.0 % (4.0-5.6) 01/30/19 07:20 Calcium 9.0 mg/dL (8.6-10.3) 01/28/19 20:40 AST 12 U/L (13-39) L 01/28/19 20:40 ALT 11 U/L (7-52) 01/28/19 20:40 Triglycerides 142 mg/dL 01/30/19 07:20 Cholesterol 124 mg/dL 01/30/19 07:20 LDL Cholesterol 56 mg/dL 01/30/19 07:20 Vital Signs Temp Pulse Resp BP Pulse Ox 97.7 F 68 16 127/65 99 02/01/19 09:24 02/01/19 09:24 02/01/19 09:24 02/01/19 09:24 02/01/19 09:24 Continued Medication Management: Continue Outpt Medication Medications: Current Medications Al Hydrox/Mg Hydrox/Simethicone (Maalox Plus*) 30 ml PO Q4H PRN PRN Reason: INDIGESTION Albuterol (Ventolin Hfa Inhaler*) 1 puff INH Q6H PRN PRN Reason: SOB/WHEEZING Ibuprofen (Motrin Tab*) 600 mg PO Q6H PRN PRN Reason: PAIN Last Admin: 02/01/19 06:27 Dose: 600 mg Lamotrigine (Lamictal Tab(*)) 25 mg PO DAILY [facility] Last Admin: 02/01/19 08:19 Dose: 25 mg Melatonin (Melatonin) 3 mg PO 2100 [facility] Last Admin: 01/31/19 21:12 Dose: 3 mg Multivitamins (Theragran Tab*) 1 tab PO DAILY [facility] Last Admin: 02/01/19 08:19 Dose: 1 tab Nicotine (Nicotine Patch 21 Mg/24 Hr*) 1 patch TRANSDERM DAILY [facility] Last Admin: 02/01/19 08:19 Dose: 1 patch Nicotine Polacrilex (Nicotine Gum*) 2 mg PO Q2H PRN PRN Reason: CRAVINGS Last Admin: 01/31/19 19:09 Dose: 2 mg Pharmacy Profile Note (Nicotine Patch Removal Note*) 1 note FOLLOW UP 2100 [facility] Last Admin: 01/31/19 21:13 Dose: 1 note Sertraline HCl (Zoloft*) 25 mg PO DAILY [facility] Last Admin: 02/01/19 09:34 Dose: 25 mg - Discharge Plan Discharge Plan: Inpatient Hospitalization
--- NOTE | 2019-02-01 12:02 | PN ---
BSU: Group Therapy Note - Service Type Service Type: [id number] Group Psychotherapy - Cognitive Behavioral Group Therapy ( CBT):Patient was attentive and participatory in CBT programming this morning, and remained in good behavioral control. Patient expressed positive insights regarding relevant treatment interventions and goals.
[2019-02-01] MEDS: Nicotine* 2MG (FRUIT FLAVOR) GUM PO PRN ×2 (13:13→16:11)
[2019-02-01] MEDS: Melatonin 3 MG TAB PO SCH (21:40)
[2019-02-01] MEDS: Nicotine Patch Removal NOTE FOLLOW UP SCH (21:41)
[2019-02-02] MEDS: lamoTRIgine TAB(*) 25 MG PO SCH (09:06)
[2019-02-02] MEDS: Sertraline* 25 MG TAB PO SCH (09:06)
[2019-02-02] MEDS: Nicotine PATCH 21 MG/24 HR* PATCH TRANSDERM SCH (09:06)
[2019-02-02] MEDS: Vitamin THERAPEUTIC TAB PO SCH (09:06)
[2019-02-02] MEDS: Nicotine* 2MG (FRUIT FLAVOR) GUM PO PRN ×3 (11:43→18:59)
[2019-02-02] MEDS: Ibuprofen TAB* 600 MG PO PRN ×2 (12:47→20:28)
[2019-02-02] MEDS: Melatonin 3 MG TAB PO SCH (20:26)
[2019-02-02] MEDS: Nicotine Patch Removal NOTE FOLLOW UP SCH (22:44)
[2019-02-03] MEDS: Ibuprofen TAB* 600 MG PO PRN (08:12)
[2019-02-03] MEDS: lamoTRIgine TAB(*) 25 MG PO SCH (08:12)
[2019-02-03] MEDS: Vitamin THERAPEUTIC TAB PO SCH (08:12)
[2019-02-03] MEDS: Nicotine PATCH 21 MG/24 HR* PATCH TRANSDERM SCH (08:13)
[2019-02-03] MEDS: Sertraline* 25 MG TAB PO SCH (08:13)
[2019-02-03] MEDS: Nicotine* 2MG (FRUIT FLAVOR) GUM PO PRN ×2 (10:58→18:39)
--- NOTE | 2019-02-03 19:48 | PN ---
Subjective - Subjective Date of Service: 02/03/19 Service Type: [id number] Hosp care 25 min moderate complexity Subjective: Mayank reports of feeling a lot better but having difficulty understanding why her dad wants to have relationship with her but not with hes children. Otherwise wants to be discharged DIAN because she misses her children. Thinks her meds are helping her already and she is tolerating them. Objective - General Observations Appearance: Well Groomed Stature: Overweight Posture: WNL Eye Contact: Average Behavior/Activity: WNL - Interaction Observations Attitude Towards Examiner: Cooperative Stated Mood: Euthymic Affect: Full Speech Pattern/Tone: Clear, Appropriate, Normal Volume Thought Process: Coherent, Goal Directed Perception: WNL Thought Content: WNL Hallucination Type: None Delusion Type: None - Cognitive Function Orientation: A&O x 4 Level of Consciousness: Awake, Alert, Appropriate Cognition: WNL Estimated Intelligence: Normal Insight: WNL Judgment Within Normal Limits: Yes - Medication Compliance Cooperative with Inpatient Medication Regimen: Yes Assessment - Assessment Merits Inpatient Hospitalization: Consolidate Improvements, Pending Safe DC Plan Clinical Impression: 23 year old female presented to the ER after making a suicide attempt by cutting her wrist with a razor Plan - Plan Treatment Plan: Name: MAYANK PAYTON Birthdate: 1995 [id number] Plan # Q30 minute observation, staff pass, comfort room and can use phone at staff discretion to talk with children # The patient requires inpatient admission at this time to assure safety, receive treatment and work toward stabilization. # Obtained collateral information # Collaboration with Social Work to assist with disposition and after care. # Continue lamotrigine 25mg daily for 1st week. To monitor for rash. # Albuterol inhaler in place #Family meeting took place and she plans to live with her step mother upon discharge. # Start zoloft 25mg daily , according to collateral and herself she has had prior favorable response without manic activation. # D/C trazodone and hydroxyzine due to increased irritability Tobacco use disorder: nicotine supplement offered and put in place. #Goals before discharge include: To eliminate/ reduce suicidal ideation #Tentative discharge Monday Sodium 140 mmol/L (135-145) 01/28/19 20:40 Potassium 3.7 mmol/L (3.5-5.0) 01/28/19 20:40 BUN 10 mg/dL (6-24) 01/28/19 20:40 Creatinine 0.68 mg/dL (0.51-0.95) 01/28/19 20:40 Hemoglobin A1c 5.0 % (4.0-5.6) 01/30/19 07:20 Calcium 9.0 mg/dL (8.6-10.3) 01/28/19 20:40 AST 12 U/L (13-39) L 01/28/19 20:40 ALT 11 U/L (7-52) 01/28/19 20:40 Triglycerides 142 mg/dL 01/30/19 07:20 Cholesterol 124 mg/dL 01/30/19 07:20 LDL Cholesterol 56 mg/dL 01/30/19 07:20 Vital Signs Temp Pulse Resp BP Pulse Ox 97.7 F 68 16 127/65 99 02/01/19 09:24 02/01/19 09:24 02/01/19 09:24 02/01/19 09:24 02/01/19 09:24 Continued Medication Management: Continue Outpt Medication Medications: Current Medications Al Hydrox/Mg Hydrox/Simethicone (Maalox Plus*) 30 ml PO Q4H PRN PRN Reason: INDIGESTION Albuterol (Ventolin Hfa Inhaler*) 1 puff INH Q6H PRN PRN Reason: SOB/WHEEZING Ibuprofen (Motrin Tab*) 600 mg PO Q6H PRN PRN Reason: PAIN Last Admin: 02/03/19 08:12 Dose: 600 mg Lamotrigine (Lamictal Tab(*)) 25 mg PO DAILY [facility] Last Admin: 02/03/19 08:12 Dose: 25 mg Melatonin (Melatonin) 3 mg PO 2099 [facility] Last Admin: 02/02/19 20:26 Dose: 3 mg Multivitamins (Theragran Tab*) 1 tab PO DAILY [facility] Last Admin: 02/03/19 08:12 Dose: 1 tab Nicotine (Nicotine Patch 21 Mg/24 Hr*) 1 patch TRANSDERM DAILY [facility] Last Admin: 02/03/19 08:13 Dose: 1 patch Nicotine Polacrilex (Nicotine Gum*) 2 mg PO Q2H PRN PRN Reason: CRAVINGS Last Admin: 02/03/19 18:39 Dose: 2 mg Pharmacy Profile Note (Nicotine Patch Removal Note*) 1 note FOLLOW UP 2099 [facility] Last Admin: 02/02/19 22:44 Dose: 1 note Sertraline HCl (Zoloft*) 25 mg PO DAILY [facility] Last Admin: 02/03/19 08:13 Dose: 25 mg - Discharge Plan Discharge Plan: Outpatient Follow Up Outpatient Program: [facility] Vasques [facility]
[2019-02-03] MEDS: Melatonin 3 MG TAB PO SCH (21:54)
[2019-02-03] MEDS: Nicotine Patch Removal NOTE FOLLOW UP SCH (21:55)
[2019-02-04] MEDS: Ibuprofen TAB* 600 MG PO PRN ×2 (01:16→09:25)
--- NOTE | 2019-02-04 08:30 | DS ---
Subjective - Subjective Service Types: 62098 [facility] Day Mgmt complex over 30 min Discharge Date: 02/04/19 Subjective: CC: " I am better" Patient looks forward to seeing her children. The patient was seen and evaluated before discharge today. The patient reported having adequate appetite and sleep. The patient reports attending and participating in day groups. Per nursing no behavioral issues or overnight events reported. Patient reported tolerating medications without side effects. Justification for admission: Immediate Safety. CC " I cut my wrist" The patient was brought to [facility] after making a suicide attempt by cutting her wrist in attempt to end her life. She reported being determined to . She cut her wrist horizontally because she heard that the artery runs that direction and would increase her chances to . Current stressors include having her children live with her mother and recently having an . She denied access to firearms or stockpiles of medications. She reports a fluctuation of sleep between excessive and no sleep. The patient denied homicidal ideation intent or plan. The patient denied auditory and/ or visual hallucinations. MDD Reported feeling depressed and having diminished interests which were found to be enjoyable in the past. She reported feeling empty inside with feelings of hopelessness, and worthlessness. Lately she has had overwhelming feelings of guilt and decreased concentration. Bipolar About a week ago she reported having 3 days where she did not sleep, and stayed up cleaning the house., having racing thoughts and rapid speech. She reported moods of highs and lows. In this time she reported having a persistent abundance of energy most of the day without the use of energy drinks, stimulants , or recreational drug use. Following the 3 days of experiencing this she reported becoming depressed. Anxiety Denied having symptoms of anxiety such as having times where heart feels that it is beating out of chest , sweaty palms, or shallow breathing. But decribed a time where she woke up in panic after a nightmare of her children being killed. Psychosis Does not endorse hearing things that other people do not hear or seeing things other people do not see. Denied feeling that TV is making references. Denied feeling that people are spying , following , or reading their thoughts. Phobias: Patient denied having excessive fear of a particular thing or situation. Eating disorders: Patient denied having excessive eating habits or feelings of guilt after eating. Denied repeated episodes of self induced vomiting after eating. PTSD Denied flashbacks, nightmares and avoidance of a prior traumatic event. PAST PSYCHIATRIC HISTORY: Prior Diagnosis : Major depressive disorder History of past Psychiatric Hospitalizations: No prior psychiatric admission. History of past suicide/homicide attempts : Denied past suicide attempts. Denied past homicidal incidents. Outpatient follow-up: Dr. Loomis Medications: Past trials of medications include hydroxyzine 50mg PRN and trazodone 100mg qhs Guardianship: None. FAMILY HISTORY: - Suicide: Denied family history of suicide. - Mental illness: Aunt Dx. w/ Bipolar disorder. Mother Dx with Bipolar disorder with the type unknown - Substance abuse: Mother and father have a past history of using heroin. SUBSTANCE ABUSE HISTORY: Denied using heroin cocaine or other illicit substances. Denied recreationally abusing pills. Denied past Substance abuse treatment. - EtOH: Drinks 3 glasses of wine per sitting / 3 times a month - Tobacco: smokes 2PPD - Cannabis: Uses daily - Heroin: Denied using recently or in the past. - Cocaine: Denied using recently or in the past. - Substance abuse treatment: Denied past substance abuse treatment SOCIAL HISTORY: Denied a history of abuse of physical and or sexual abuse. She works at [employer]. She was raised by her mother and step- father. Currently lives with her boyfriends family. She has 2 children and is not . - Legal history: Denied - service history: Denied PAST MEDICAL HISTORY: Asthma. Denied heart disease, diabetes, cancer and/ or other medical conditions. - Allergies: Clindamycin Physical Exam: Please see ED note Mental Status Exam on Admission APPEARANCE : 23 year old female who appears stated age. Patient is disheveled BEHAVIOR: Cooperative , calm EYE CONTACT: Fair PSYCHOMOTOR ACTIVITY: No psychomotor agitation or retardation. MOVEMENTS: No abnormal movements observed. SPEECH : Normal rate, rhythm, volume and tone. MOOD : "Sad " AFFECT : Type is depressed Range is restricted with shallow depth Mood Congruent Labile THOUGHT PROCESS: Formulated and organized in a logical, linear goal directed manner. No flight of ideas, neologism (made up words) , perseveration , tangential , loose associations , or circumstantiality. THOUGHT CONTENT: no delusions, obsessions, phobias or preoccupations. PERCEPTION: No current auditory or visual hallucinations. Doesnt appear to be responding to internal cues. No evidence of depersonalization , de-realization, or illusions SUICIDALITY Recent suicide attempt HOMICIDALITY Denied homicidal ideation, intent or plan. Insight/judgment: Fair insight and judgment ORIENTATION: Oriented to self, location, and time. Diagnosis on Admission: Bipolar II disorder, current depressive episode. Tobacco use disorder Diagnosis on Discharge: Bipolar II disorder, in partial remission. Tobacco use disorder Condition at the time of discharge: At the time of discharge patient showed improvement of sleep and appetite. The patient was not a danger to self or others. The patient denied suicidal ideation , intent or plan. The patient denied homicidal targets, ideation, intent or plan. This patient participated in psychosocial rehabilitation and gained some insight into problems. The patient gained insight into mental illness, triggers, and treatment. The patient took medication as prescribed. The patient denied side effects of medication and objective signs of side effects were not evident. Therapy Resources were offered to the patient. Patient was given a supply of prescriptions at the time of discharge. The patient plans to attend follow up care with the follow up arrangements that were discussed and put in place. Patient was asked to keep appointments as scheduled, take medication as prescribed, have routine follow up care with their primary care physician and refrain from any use of alcohol or drugs. Objective - General Observations Appearance: Neat Appears Stated Age: Yes Stature: WNL Posture: WNL, Slumped Eye Contact: Average Behavior/Activity: WNL - Interaction Observations Attitude Towards Examiner: Cooperative Stated Mood: Euthymic Affect: Full Speech Pattern/Tone: Clear Thought Process: Coherent Perception: WNL Thought Content: WNL Hallucination Type: None Delusion Type: None - Cognitive Function Orientation: A&O x 4 Level of Consciousness: Awake Cognition: WNL - Medication Compliance Cooperative with Inpatient Medication Regimen: Yes - Group Participation Participates in Group Activities: Yes Treatment Course & Assessment Clinical Course & Impression: Hospital course part A: 23 year old female presented to the ER after making a suicide attempt by cutting her wrist with a razor Hospital course part B: Labs ordered included CBC, CMP, UDS, TSH, HBA1c, TSH, BHCG, Toxicology screen, Urine analysis, and lipid profile. Labs were reviewed and did not require the need for further evaluation. Vital signs were monitored during the course of admission. MMPI was ordered and indicated features of hypomania, and impulsiveness. The patient was admitted to the adult behavioral unit and placed on 15 minute check for safety. At a later time the patient was on Q30 minute observation and staff pass privileges. With those limits being extended , there were no occurrence of behavioral incidents. The patient did well on the unit and went to groups. Interacted with peers had adequate sleep and regular appetite. Tolerated medication changes without side effects. Group therapy and services were offered. The risks, benefits, and alternative treatment options were discussed as well as of the risks of refusing treatment. Treatment associated risks discussed. After this discussion made an acknowledgement of this understanding. Follow up care appointments were put in place for follow up care. The importance of monitoring for metabolic changes was discussed and acknowledgement of this understanding was made. Improvements in patient from the time of admission include: Improved affect, sleep and decrease in anxiety. No longer suicidal and no longer having feelings of hopelessness. The patient expressed readiness for discharge home. The patient presents with a broader range of affect, and the absence of depressed mood, delusions, perceptual disturbances. The patient denied suicidal and or homicidal ideation intent or plan. Overall, the patient responded well to inpatient treatment as evidenced by their report of strengthening of coping mechanisms, reduced distress, and more positive outlook on circumstances. Of note there was an improvement of recognizing how emotional state can effect mood and behavior. Safety precautions were put in place which included involving the patient and their family to closely monitor for changes in mental state. In addition, implementing follow up care, screening for the need to remove/securing firearms , weapons and stockpile of medications. Patient/ family instructed to immediately call 911 should any safety concerns arise. B-HCG is negative for current . She was informed of the risks associated with medication in . In the event that she becomes in the future and was advised to talk with her outpatient healthcare provider about starting or stopping medications during . The patient was advised of the 24 hour / 7 days a week availability of the emergency room and to call 911 in the event of an emergency such as being suicidal and/ or homicidal. The patient was informed of the contact information for [facility], Suicide Prevention and Crisis Services, National Suicide Prevention Lifeline, [facility], Alcoholics Anonymous, and [facility]. Medications started included zoloft 25mg daily for depression. According to patient and her partner , she did well on zoloft in the past without activating manic features. Lamotrigine was started at 25mg and increased to 50mg on for mood stabilization. She was advised to go to the ER if she notices any skin changes. She did not have any skin changes during increase in titration. Discontinued trazodone and hydroxyzine due to increased irritability and poor response per patient and collateral. Nicotine patch 21mg was provided. Family meeting took place before discharge. The family confirmed that the patient is at their baseline and is in agreement with the discharge plan. They were advised about the warning signs associated with decompensation and progression of mental illness. Her partner confirmed no access to firearms. She plans to see her children more often, upon discharge, which was a main stressor to her before admission. Patient will be discharged to live at her step mothers home with her partner. Follow up appointment at [facility] and Iam Sauceda NP Patient informed of follow up appointment times. See more details for follow up care in the discharge plan. Risk factors: , single, history of mental illness. Recent suicide attempt. Recent housing changes. Protective factors: Currently no suicidal ideation, intent or plan. She has children and partner. Has support system. No history of service. Currently no feelings of hopelessness, not in an occupation of social isolation , doesnt have multiple medical conditions, no family history of suicide, doesn t have access to firearms. Doesnt have command hallucinations and or psychotic features at this time. No history of substance abuse. No history of alcohol abuse. Not a anniversary of a loss of a loved one. Currently future orientated. Patient engaged in treatment and compliant with medication. Sodium 140 mmol/L (135-145) 01/28/19 20:40 Potassium 3.7 mmol/L (3.5-5.0) 01/28/19 20:40 BUN 10 mg/dL (6-24) 01/28/19 20:40 Creatinine 0.68 mg/dL (0.51-0.95) 01/28/19 20:40 Hemoglobin A1c 5.0 % (4.0-5.6) 01/30/19 07:20 Calcium 9.0 mg/dL (8.6-10.3) 01/28/19 20:40 AST 12 U/L (13-39) L 01/28/19 20:40 ALT 11 U/L (7-52) 01/28/19 20:40 Triglycerides 142 mg/dL 01/30/19 07:20 Cholesterol 124 mg/dL 01/30/19 07:20 LDL Cholesterol 56 mg/dL 01/30/19 07:20 Vital Signs Temp Pulse Resp BP Pulse Ox 98.6 F 51 16 137/67 100 02/04/19 08:00 02/04/19 08:00 02/04/19 08:00 02/04/19 08:00 02/04/19 08:00 Merits Inpatient Hospitalization: No Clear for Discharge: Adequate Clinical Respons Discharge Planning - Discharge Planning Discharge Plan: Outpatient Follow Up Outpatient [facility] Recommendations for Continuing Care: Medication Management Medications: Current Medications Al Hydrox/Mg Hydrox/Simethicone (Maalox Plus*) 30 ml PO Q4H PRN PRN Reason: INDIGESTION Albuterol (Ventolin Hfa Inhaler*) 1 puff INH Q6H PRN PRN Reason: SOB/WHEEZING Ibuprofen (Motrin Tab*) 600 mg PO Q6H PRN PRN Reason: PAIN Last Admin: 02/04/19 01:16 Dose: 600 mg Lamotrigine (Lamictal Tab(*)) 50 mg PO DAILY [facility] Melatonin (Melatonin) 3 mg PO 2100 [facility] Last Admin: 02/03/19 21:54 Dose: 3 mg Multivitamins (Theragran Tab*) 1 tab PO DAILY [facility] Last Admin: 02/03/19 08:12 Dose: 1 tab Nicotine (Nicotine Patch 21 Mg/24 Hr*) 1 patch TRANSDERM DAILY [facility] Last Admin: 02/03/19 08:13 Dose: 1 patch Nicotine Polacrilex (Nicotine Gum*) 2 mg PO Q2H PRN PRN Reason: CRAVINGS Last Admin: 02/03/19 18:39 Dose: 2 mg Pharmacy Profile Note (Nicotine Patch Removal Note*) 1 note FOLLOW UP 2100 [facility] Last Admin: 02/03/19 21:55 Dose: 1 note Sertraline HCl (Zoloft*) 25 mg PO DAILY [facility] Last Admin: 02/03/19 08:13 Dose: 25 mg Discharge Planning: Prescriptions provided for discharge [x] Yes [] No Follow up care details as per social work arrangements. Patient response to discharge plan: [x] eager for discharge [] agreeable with discharge plan [] ambivalent about discharge [] disagrees with discharge today
[2019-02-04] MEDS ORDERED: lamoTRIgine TAB(*) 25 MG PO SCH (09:00)
[2019-02-04] MEDS: Nicotine PATCH 21 MG/24 HR* PATCH TRANSDERM SCH (09:22)
[2019-02-04] MEDS: Sertraline* 25 MG TAB PO SCH (09:22)
[2019-02-04] MEDS: Vitamin THERAPEUTIC TAB PO SCH (09:22)
[2019-02-04 09:38] VITALS: BP 137/67
--- NOTE | 2019-02-04 11:43 | PN ---
BSU: Group Therapy Note - Service Type Service Type: [id number] Group Psychotherapy - Cognitive Behavioral Group Therapy ( CBT):Patient was attentive and participatory in CBT programming this morning, and remained in good behavioral control. Patient expressed positive insights regarding relevant treatment interventions and goals.
== END 2019-02-04 12:00 | disposition home or self-care (01) | DRG 753 ==
LOC: ED 19:46 → BSU 01-29 00:58
PROVIDERS: ADMIT Psychiatry & Neurology Psychiatry; ATTEND Psychiatry & Neurology Psychiatry
PROC: GZHZZZZ Group Psychotherapy (ICD-10-PCS; principal; 2019-02-01)
DX: F31.81 Bipolar II disorder (principal); X78.9XXA Intentional self-harm by unspecified sharp object, initial encounter; F17.210 Nicotine dependence, cigarettes, uncomplicated; J45.909 Unspecified asthma, uncomplicated; F41.9 Anxiety disorder, unspecified; E66.3 Overweight; Z68.39 Body mass index [BMI] 39.0-39.9, adult; Y92.009 Unspecified place in unspecified non-institutional (private) residence as the place of occurrence of the external cause; Z81.8 Family history of other mental and behavioral disorders; Z81.4 Family history of other substance abuse and dependence; Z88.1 Allergy status to other antibiotic agents; Z90.49 Acquired absence of other specified parts of digestive tract; Z72.89 Other problems related to lifestyle; Z82.49 Family history of ischemic heart disease and other diseases of the circulatory system
CPT/HCPCS: 36415; 80053; 80061; 80320; 80329; 83036; 84443; 84702; 85025; 90853; 99222; 99232; 99233; 99238; 99284; A9270-GY; G0480

== ENCOUNTER 2019-09-01 16:13 | Emergency (ER) | payer MEDICAID, OTHER ==
--- NOTE | 2019-09-01 16:28 | ED ---
Upper Extremity Pain - HPI Summary HPI Summary: 24-year-old right-hand dominant female of 11 weeks gestation presents to the emergency department today complaining of 7 out of 10 right hand pain after punching her refrigerator at 11 PM yesterday evening. Patient believes she broke her hand she heard a "crunch". Patient dorsal swelling and bruising to the hand and wrist. Patient has not taken any medication prior to arrival. Patient full range of motion of the wrist and elbow but has diminished range of motion of the fourth and fifth digits of the right hand. There is noted ecchymosis superior to the fourth metacarpal. Patient is neurovascularly intact. Patient otherwise feels well and denies fever, chest pain, abdominal pain, pain with urination, rash. Family history and surgical history noncontributory. - History of Current Complaint Chief Complaint: EDExtremityUpper Stated Complaint: RIGHT HAND INJURY PER PT Time Seen by Provider: 09/01/19 16:28 Hx Obtained From: Patient Hx Last Menstrual Period: 06/22/18 Mechanism Of Injury: Direct Blow Onset/Duration: Started Hours Ago Timing: Constant Severity Initially: Moderate Severity Currently: Moderate Pain Location: Hand Character: Aching Aggravating Factor(s): Movement, Lifting Alleviating Factor(s): Rest Associated Signs & Symptoms: Positive: Swelling, Bruising. Negative: Fever, Weakness, Numbness/Tingling, Chest Pain, SOB, Neck Pain, Nausea, Vomiting - Allergies/Home Medications Allergies/Adverse Reactions: Allergies Allergy/AdvReac Type Severity Reaction Status Date / Time clindamycin Allergy See Comment Verified 09/01/19 16:21 PMH/Surg Hx/FS Hx/Imm Hx Endocrine/Hematology History: Denies: Hx Anticoagulant Therapy, Hx Blood Disorders, Hx Diabetes, Hx Thyroid Disease, Hx Anemia, Hx Unexplained Bleeding Respiratory History: Reports: Hx Asthma, Other Respiratory Problems/Disorders - Hx pleurisy GI History: Reports: Hx Gall Bladder Disease - gall bladder removed, Hx Gastroesophageal Reflux Disease, Hx Gastrointestinal Bleed, Hx Ulcer Musculoskeletal History: Reports: Hx Back Problems, Other Musculoskeletal History - spinal problems Sensory History: Reports: Hx Contacts or Glasses Denies: Hx Hearing Aid Opthamlomology History: Reports: Hx Contacts or Glasses Neurological History: Reports: Hx Migraine Psychiatric History: Reports: Hx Anxiety, Hx Depression - Post Depression prescribed zoloft, Hx Panic Disorder, Hx Post Traumatic Stress Disorder, Hx Community Mental Health Tx, Hx Suicide Attempt, Hx Substance Abuse - marijuana Denies: Hx Eating Disorder, Hx Inpatient Treatment, Hx Schizophrenia, Hx of Violent Episodes Against Others - Surgical History Surgery Procedure, Year, and Place: gall bladder removal 2016, tonsil removal 2016 Infectious Disease History: No Infectious Disease History: Denies: Traveled Outside the [place] in Last 30 Days - Family History Known Family History: Positive: Hypertension - father - Social History Alcohol Use: Rare Hx Substance Use: Yes Substance Use Type: Reports: Marijuana Substance Use Comment - Amount & Last Used: 07/06/18 Hx Tobacco Use: Yes Smoking Status (MU): Heavy Every Day Tobacco Smoker Type: Cigarettes Amount Used/How Often: 1 PPD & VAPES Review of Systems Constitutional: Negative Eyes: Negative ENT: Negative Cardiovascular: Negative Respiratory: Negative Gastrointestinal: Negative Genitourinary: Negative Positive: Arthralgia, Decreased ROM, Edema Skin: Negative Neurological: Negative Psychological: Normal All Other Systems Reviewed And Are Negative: Yes Physical Exam - Summary Physical Exam Summary: Inspection of the right hand shows mild edema and ecchymosis superior to the fourth metacarpal. Patient has decreased range of motion with fourth and fifth digit due to pain. Patient is full range of motion of the wrist and elbow on the right upper extremity. Patient is neurovascularly intact the right upper extremity. There is no snuffbox tenderness and there are no evidence of fight bites. Triage Information Reviewed: Yes Vital Signs On Initial Exam: Initial Vitals Temp Pulse Resp BP Pulse Ox 98.5 F 100 16 124/86 97 09/01/19 16:18 09/01/19 16:18 09/01/19 16:18 09/01/19 16:18 09/01/19 16:18 Vital Signs Reviewed: Yes Appearance: Positive: Well-Appearing, No Pain Distress, Well-Nourished Skin: Positive: Warm, Skin Color Reflects Adequate Perfusion Eyes: Positive: EOMI, REILLY ENT: Positive: Hearing grossly normal Respiratory/Lung Sounds: Positive: Clear to Auscultation, Breath Sounds Present Cardiovascular: Positive: RRR, S1, S2 Musculoskeletal: Positive: Strength/ROM Intact Neurological: Positive: Sensory/Motor Intact, Alert, Oriented to Person Place, Time, Normal Gait, Facial Symmetry, Speech Normal Psychiatric: Positive: Normal, Affect/Mood Appropriate AVPU Assessment: Alert Procedures - Sedation Patient Received Moderate/Deep Sedation with Procedure: No - Splinting Right Upper Extremity Hand-Made Type: orthoglass Splint: ulnar Pre-Proc Neuro Vasc Exam: normal Post-Proc Neuro Vasc Exam: normal Splint Applied by Provider: [facility] - Vital Signs Vital Signs Temp Pulse Resp BP Pulse Ox 09/01/19 16:18 98.5 F 100 16 124/86 97 - Laboratory Lab Statement: Any lab studies that have been ordered have been reviewed, and results considered in the medical decision making process. Course/Dx - Course Course Of Treatment: Patient was evaluated in the emergency department today due to right hand pain. Patient was seen and examined her vitals were stable and she was afebrile. Pt was neurovascularly intact. X-ray of the right hand was obtained for suspected fracture of the fifth metacarpal. Patient was given 950 mg Tylenol for pain. X-ray of the right hand shows a mildly palmar displaced comminuted fracture the fifth metacarpal. Patient was placed in a ulnar gutter splint and told to follow-up with orthopedics in 5 days for further evaluation and management. Patient was given instruction to take ibuprofen and practice rest, ice, elevate, compress and to keep her splint dry and intact until she follows up with orthopedics. Patient discharged with outpatient follow-up. - Diagnoses Differential Diagnosis/HQI/PQRI: Positive: Contusion, Fracture (Closed), Hematoma, Strain, Sprain Provider Diagnoses: Boxers fracture Discharge ED - Sign-Out/Discharge Documenting (check all that apply): Patient Departure - Discharge Plan Condition: Stable Disposition: HOME Patient Education Materials: Boxer Fracture (ED), R.I.C.E. Treatment (ED) Referrals: Iam Sauceda NP [Primary Care Provider] - Ronak Ortega MD [Medical Doctor] - 3 Days Additional Instructions: You were seen in the emergency department today for a fracture of your right hand. Please follow up with Orthopedics in 5 days for further evaluation and management of your injury. Until you are seen by Orthopedics please return to activity is tolerated. For further alleviation of your symptoms please practice R.I.C.E therapy. Rest, Ice, compress, elevate the affected area. * tylenol three times daily with meals for pain. * If numbness, tingling, decreased sensation, increased pain, temperature changes or pallor noted in toes, come back to ER immediately. * Protect the area. For your comfort level, do not bear weight, pull or push until you can injury is somewhat healed. This may involve the need for immobilization or crutches for a period of time. * Rest the involved area, but not too long. You may need to be off your injury for some time to allow for healing, however excessive immobilization of joints can lead to stiffness and delay healing time. Early mobilization is encouraged if it is pain-free. * Ice: Not directly on the skin. Cover with a towel. Apply ice no more than 30 minutes at a time * Compression: You may use and keep an valente wrap bandage over the injury to decrease swelling. Again, this should be limited and be taken off periodically to encourage early range of motion and mobilization. * Elevate: Try to elevate the injured area above the heart whenever possible, Especially during sleep. * Keep your splint dry and intact until you are seen by orthopedics. - Billing Disposition and Condition Condition: STABLE Disposition: Home
[2019-09-01] MEDS ORDERED: Acetaminophen TAB* 325 MG PO ONE (16:34)
[2019-09-01 18:39] VITALS: BP 122/78
== END 2019-09-01 18:37 | disposition home or self-care (01) ==
LOC: ED 16:13
DX: S62.396A Other fracture of fifth metacarpal bone, right hand, initial encounter for closed fracture (principal); W22.09XA Striking against other stationary object, initial encounter; Y92.000 Kitchen of unspecified non-institutional (private) residence as the place of occurrence of the external cause; O99.341 Other mental disorders complicating pregnancy, first trimester; F41.9 Anxiety disorder, unspecified; F43.10 Post-traumatic stress disorder, unspecified; F32.9 Major depressive disorder, single episode, unspecified; O99.331 Smoking (tobacco) complicating pregnancy, first trimester; F17.210 Nicotine dependence, cigarettes, uncomplicated; Z3A.11 11 weeks gestation of pregnancy; Z90.49 Acquired absence of other specified parts of digestive tract; Z88.1 Allergy status to other antibiotic agents
CPT/HCPCS: 99282; A9270-GY

== ENCOUNTER 2019-10-16 18:13 | Emergency (ER) | payer MEDICAID ==
--- OUTSIDE RECORDS SUMMARY | 2019-10-16 18:37 | XMS REPORT | Continuity of Care Document ---
:1995 External Reference #:[id number] Author Name Kasey Alvarado M.D. (transmitted by agent of provider Roxie Shaw) Address [address] [place] [id number] Care Team Providers Name Role Phone Melissa Perales MD - Internal Care Team Information Medical Billing Clerk Medicine Problems Active Problems Provider Date Bipolar disorder Iam Sauceda NP Onset: 02/14/2019 Social History Type Date Description Comments Sex Unknown ETOH Use Occasionally consumes alcohol Recreational Drug Use Marijuana Tobacco Use Reviewed: Heavy tobacco smoker 1ppd since age 15. 02/13/19 (more than 10 Using nicotine patch cigarettes/day) in attempt to quit Smoking Status Reviewed: Heavy tobacco smoker 1ppd since age 15. 09/12/19 (more than 10 Using nicotine patch cigarettes/day) in attempt to quit Exercise Type/Frequency Exercises sporadically Allergies, Adverse Reactions, Alerts Active Allergies Reaction Severity Comments Date Clindamycin gives her yeast infection 01/08/2019 Medications Active Medications SIG Qnty Indications Ordering Provider Date Lamotrigine Take 1 Tablet By 60tabs F31.81 Iam Sauceda NP 02/13/2019 100mg Mouth Twice Tablets Daily Sertraline HCL take 1 tablet by 14tabs Iam Sauceda NP 02/13/2019 25mg mouth every day Tablets Immunizations Description No Information Available Vital Signs Date Vital Result Comment 09/12/2019 1:10pm Height 65 inches 5'5" Weight 203.00 lb BP Systolic 111 mmHg BP Diastolic 76 mmHg Respiratory Rate 17 /min Pain Level 8 BMI (Body Mass Index) 33.8 kg/m2 02/13/2019 1:11pm Height 65 inches 5'5" Weight 236.25 lb Heart Rate 51 /min BP Systolic 119 mmHg BP Diastolic 67 mmHg Body Temperature 97.7 F O2 % BldC Oximetry 97 % BMI (Body Mass Index) 39.3 kg/m2 Results Description No Information Available Procedures Description No Information Available Medical Devices Description No Information Available Encounters Type Date Location Provider Dx Diagnosis Office Visit 09/12/2019 [facility] Kasey S62.326A Disp fx of shaft 1:00p at [facility] Alvarado M.D. of fifth metacarpal bone, right hand, init Assessments Date Code Description Provider 09/12/2019 S62.326A Displaced fracture of shaft of fifth Kasey Alvarado M.D. metacarpal bone, right hand, initial encounter for closed fracture Plan of Treatment Future Appointment(s):10/03/2019 1:00 pm - Kasey Alvarado M.D. at [facility] at [id number]/12/2019 - Kasey Alvarado M.D.S62.326A Displaced fracture of shaft of fifth metacarpal bone, right hand, initial encounter for closed fractureFollow up:Follow up: 3 weeks Functional Status Description No Information Available Mental Status Description No Information Available Referrals Description No Information Available
[2019-10-16 19:09] LABS: Urine Appearance Cloudy; Urine Bilirubin Negative (Negative); Urine Blood 1+ (Negative); Urine Color Yellow; Urine Glucose 2+(150 mg/dL) (Negative); Urine Ketones Negative (Negative); Urine Nitrite Positive (Negative); Urine Protein 1+(30 mg/dL) (Negative); Urine Specific Gravity 1.015 (1.010-1.030); Urine Urobilinogen Negative (Negative)
[2019-10-16 19:22] LABS: Urine Bacteria 1+ (Absent); Urine Red Blood Cell 3+(>10/hpf) (Absent); Urine Squamous Epithelial Cell Present (Absent); Urine White Blood Cell 3+(>20/hpf) (Absent)
[2019-10-16] MEDS ORDERED: NS 0.9% 1000 ML** 1,000 ML IV ONE (19:28)
[2019-10-16 19:37] LABS: ABS Eosinophils 0.1 10^3/ul (0-0.6); ABS Lymphocytes 2.3 10^3/ul (1.0-4.8); ABS Monocytes 0.7 10^3/ul (0-0.8); ABS Neutrophils 8.6 10^3/ul (1.5-7.7); Eosinophil % 0.6 %; Hematocrit 36 % (35-47); Hemoglobin 12.5 g/dL (12.0-16.0); Lymphocyte % 19.4 %; Mean Corpuscular HGB Conc 35 g/dL (31-36); Mean Corpuscular Hemoglobin 32 pg (27-31); Mean Corpuscular Volume 92 fL (80-97); Mean Platelet Volume 8.8 fL (7.4-10.4); Platelet Count 197 10^3/uL (150-450); Red Blood Count 3.92 10^6 /uL (3.70-4.87); Red Cell Distribution Width 13 % (10-15); White Blood Count 11.7 10^3/uL (3.5-10.8)
[2019-10-16] MEDS ORDERED: cefTRIAXone(*) 1 GM in NS 0.9% 50 ML* 50 ML IVPB ONE (19:42)
[2019-10-16 19:57] LABS: Albumin 4.1 g/dL (3.2-5.2); Albumin/Globulin Ratio 1.5 (1-3); BUN/Creatinine Ratio 11.1 (8-20); Calcium 9.5 mg/dL (8.6-10.3); EGFR African American 170.8 (>60); EGFR Non-African American 141.2 (>60); Globulin 2.7 g/dL (2-4); Potassium 3.9 mmol/L (3.5-5.0); Total Bilirubin 0.2 mg/dL (0.2-1.0); Total Protein 6.8 g/dL (6.4-8.9)
--- NOTE | 2019-10-16 20:00 | ED ---
GI/ HPI - HPI Summary HPI Summary: Patient is a 24 y/o female who is 18 weeks (A2) presenting to [facility] with complaints of abdominal pain, back pain, hematuria, pain after urination and N/V. She reports hematuria and pain onset around three days ago. These Sx initially resolved after taking AZO. However, pain after urination onset and she was experiencing abdominal and back pain once more. Patient states that she felt feverish yesterday and experienced N/V yesterday and the day before. Diarrhea is denied. LNMP was June 12 2019. She states that she went to a center two weeks ago; US was done at the time and she was told that she was 16 weeks , due date of 03/18/20. She has been debating between staying in [place] and moving back to her family in [place], as a result she has not been established with physician in the local area. Hx of asthma noted. Patient notes that she is supposed to be on Lamotrigine and Sertraline but has not filled her prescriptions; patient last took these medications in July 2019. PSHx of cholecystectomy and tonsillectomy noted. She smokes cigarettes and marijuana but denies alcohol and other substance usage. FMHx of cancer and ovarian cysts noted. Home medications and allergies are reviewed. - History of Current Complaint Chief Complaint: EDFlankPain Time Seen by Provider: 10/16/19 19:22 Stated Complaint: 18 WKS PREG/ABD PAIN PER PT Hx Obtained From: Patient Hx Last Menstrual Period: 06/22/19 Onset/Duration: Started Days Ago Timing: Lasting Days Severity: Severe Current Severity: Severe Pain Intensity: 7 Location of Pain: Other - abdomen and back Associated Signs and Symptoms: Positive: Back Pain, Nausea, Vomiting, Fever - feverish, Hematuria, Dysuria - pain after urination, Abdominal Pain. Negative: Diarrhea - Additional Pertinent History Primary Care Physician: FREDIS - Allergy/Home Medications Allergies/Adverse Reactions: Allergies Allergy/AdvReac Type Severity Reaction Status Date / Time clindamycin Allergy See Comment Verified 10/16/19 18:25 Home Medications: Home Medications Trazodone HCl 100 mg PO BEDTIME 01/27/19 [History Confirmed 10/16/19] Albuterol HFA INHALER* [Ventolin HFA Inhaler*] 1 puff INH Q6H PRN #1 mdi 06/17/ 19 [Rx Confirmed 10/16/19] Sertraline* [Zoloft*] 25 mg PO DAILY #14 tab 02/04/19 [Rx Confirmed 10/16/19] lamoTRIgine TAB(*) [Lamictal TAB(*)] 50 mg PO DAILY #14 tab 02/04/19 [Rx Confirmed 10/16/19] PMH/Surg Hx/FS Hx/Imm Hx Endocrine/Hematology History: Denies: Hx Anticoagulant Therapy, Hx Blood Disorders, Hx Diabetes, Hx Thyroid Disease, Hx Anemia, Hx Unexplained Bleeding Respiratory History: Reports: Hx Asthma, Other Respiratory Problems/Disorders - Hx pleurisy GI History: Reports: Hx Gall Bladder Disease - gall bladder removed, Hx Gastroesophageal Reflux Disease, Hx Gastrointestinal Bleed, Hx Ulcer Musculoskeletal History: Reports: Hx Back Problems, Other Musculoskeletal History - spinal problems Sensory History: Reports: Hx Contacts or Glasses Denies: Hx Hearing Aid Opthamlomology History: Reports: Hx Contacts or Glasses Neurological History: Reports: Hx Migraine Psychiatric History: Reports: Hx Anxiety, Hx Depression - Post Depression prescribed zoloft, Hx Panic Disorder, Hx Post Traumatic Stress Disorder, Hx Community Mental Health Tx, Hx Suicide Attempt, Hx Substance Abuse - marijuana Denies: Hx Eating Disorder, Hx Inpatient Treatment, Hx Schizophrenia, Hx of Violent Episodes Against Others - Surgical History Surgery Procedure, Year, and Place: gall bladder removal 2015, tonsil removal 2015 - Immunization History Date of Influenza Vaccine: none Infectious Disease History: No Infectious Disease History: Denies: Traveled Outside the [place] in Last 30 Days - Family History Known Family History: Positive: Hypertension - father, Other - cancer, ovarian cyst - Social History Alcohol Use: None Hx Substance Use: Yes Substance Use Type: Reports: Marijuana Substance Use Comment - Amount & Last Used: nightly Hx Tobacco Use: Yes Smoking Status (MU): Heavy Every Day Tobacco Smoker Type: Cigarettes Amount Used/How Often: 1 PPD & VAPES - Additional Comments History Additional Comments: PMHx of asthma PSHx of tonsillectomy and cholecystectomy FMHx of ovarian cysts and cancer SHx of marijuana and cigarette usage Review of Systems - ROS Summary Review of Systems Summary: Home Medications Medication Instructions Recorded Confirmed Type Trazodone HCl 100 mg PO BEDTIME 01/27/19 09/01/19 History Albuterol HFA INHALER* [Ventolin 1 puff INH Q6H PRN #1 mdi 02/04/19 09/01/19 Rx HFA Inhaler*] Sertraline* [Zoloft*] 25 mg PO DAILY #14 tab 02/04/19 09/01/19 Rx lamoTRIgine TAB(*) [Lamictal 50 mg PO DAILY #14 tab 02/04/19 09/01/19 Rx TAB(*)] Positive: Fever - feverish Positive: Abdominal Pain, Vomiting, Nausea. Negative: Diarrhea Positive: dysuria - pain after urination , hematuria Positive: Myalgia - back pain All Other Systems Reviewed And Are Negative: Yes Physical Exam - Summary Physical Exam Summary: General: Well-developed, Well-nourished female. No acute distress. HEENT: Normocephalic, Atraumatic. Eyes: Conjuctiva normal, PERRL. Oropharynx: Clear, mucous membranes moist, (-) exudates. Neck: Soft, FROM, (-) lymphadenopathy, (-) thyromegaly, (-) JVD. Cardiovascular: Normal sinus rhythm, (-) murmur. Lungs: Clear to auscultation bilaterally (-) wheezes, (-) rales, (-) rhonchi. Abdomen: Soft, Mild lower abdominal tenderness, fundus is 2 cm below the umbilicus, (-) organomegaly, normal bowel sounds. heart tone of 160. Back: (-) CVA tenderness Extremities: No edema. Skin: Warm, dry, (-) rash. Neuro: Alert and oriented x3, moves all extremities equally. No ataxia. No gait disturbance. No sensory deficit. Normal strength, normal sensation. Psychiatric: Mood normal, affect normal. Triage Information Reviewed: Yes Vital Signs On Initial Exam: Initial Vitals Temp Pulse Resp BP Pulse Ox 98.7 F 91 18 166/89 98 10/16/19 18:20 10/16/19 18:20 10/16/19 18:20 10/16/19 18:20 10/16/19 18:20 Vital Signs Reviewed: Yes Procedures - Sedation Patient Received Moderate/Deep Sedation with Procedure: No Diagnostics - Vital Signs Vital Signs Temp Pulse Resp BP Pulse Ox 10/16/19 18: 98.7 F 91 18 166/89 98 - Laboratory Lab Results: Lab Results 10/16/19 10/16/19 Range/Units 19:00 19:29 WBC 11.7 H (3.5-10.8) 10^3/uL RBC 3.92 (3.70-4.87) 10^6 /uL Hgb 12.5 (12.0-16.0) g/dL Hct 36 (35-47) % MCV 92 (80-97) fL MCH 32 H (27-31) pg MCHC 35 (31-36) g/dL RDW 13 (10-15) % Plt Count 197 (150-450) 10^3/uL MPV 8.8 (7.4-10.4) fL Neut % (Auto) 73.7 % Lymph % (Auto) 19.4 % [place] % (Auto) 6.0 % Eos % (Auto) 0.6 % Baso % (Auto) 0.3 % Absolute Neuts (auto) 8.6 H (1.5-7.7) 10^3/ul Absolute Lymphs (auto) 2.3 (1.0-4.8) 10^3/ul Absolute Monos (auto) 0.7 (0-0.8) 10^3/ul Absolute Eos (auto) 0.1 (0-0.6) 10^3/ul Absolute Basos (auto) 0.0 (0-0.2) 10^3/ul Absolute Nucleated RBC 0.0 10^3/ul Nucleated RBC % 0.0 Urine Color Yellow Urine Appearance Cloudy Urine pH 6.0 (5-9) Ur Specific [place] 1.015 (1.010-1.030) Urine Protein 1+(30 mg/dl) A (Negative) Urine Ketones Negative (Negative) Urine Blood 1+ A (Negative) Urine Nitrate Positive A (Negative) Urine Bilirubin Negative (Negative) Urine Urobilinogen Negative (Negative) Ur Leukocyte Esterase 2+ A (Negative) Urine WBC (Auto) 3+(>20/hpf) A (Absent) Urine RBC (Auto) 3+(>10/hpf) A (Absent) Ur Squamous Epith Cells Present A (Absent) Urine Bacteria 1+ A (Absent) Urine Glucose 2+(150 mg/dl) A (Negative) Result Diagrams: 10/16/19 19:29 10/16/19 19:29 Lab Statement: Any lab studies that have been ordered have been reviewed, and results considered in the medical decision making process. - Ultrasound US Ultrasound Interpretation Completed By: Radiologist Summary of Ultrasound Findings: IMPRESSION: Single living intrauterine fetus with an ultrasound age of 17 weeks 1 day. which is concordant with the clinical age. No sonographic findings to correlate. with patient's symptomatology. THIS REPORT WAS REVIEWED BY ED PHYSICIAN. GIGU Course/Dx - Course Course Of Treatment: 24-year-old female presents from home with dysuria. For the last 2-3 days. She also now has lower abdominal pain. She states she is about 18 weeks' gestation. Last period was in June. She states she had an early ultrasound confirming her due date of March 18. She has not seen her physician for care as [place]. She states she is not going to move down south. she denies any vaginal bleeding or abnormal discharge. No known trauma. No fevers. On physical examshe has mild suprapubic tenderness to palpation. Workup demonstrates a positive urinary tract infection. Patient given IV fluids and Rocephin. Started on Keflex. ultrasound within normal limits for dates. advised plenty fluids and rest. Follow-up with [facility]. Follow-up sooner for any worsening symptoms. - Diagnoses Provider Diagnoses: UTI in Discharge ED - Sign-Out/Discharge Documenting (check all that apply): Patient Departure - discharge - Discharge Plan Condition: Stable Disposition: HOME Patient Education Materials: Urinary Tract Infection in (ED) Referrals: Rosa Mireles MD [Medical Doctor] - 3 Days Iam Sauceda NP [Primary Care Provider] - 3 Days Additional Instructions: PLEASE RETURN TO ED FOR ANY NEW OR WORSENING SYMPTOMS. PLEASE FOLLOW UP WITH YOUR PRIMARY CARE PHYSICIAN AND OB WITHIN THREE DAYS. - Billing Disposition and Condition Condition: STABLE Disposition: Home - Attestation Statements Document Initiated by Scribe: Yes Documenting Scribe: JOSE JOYCE Provider For Whom Theodore is Documenting (Include Credential): TOMMIE ROMANO MD Scribe Attestation: JOSE Ramey, scribed for TOMMIE ROMANO MD on 10/16/19 at 2343. Scribe Documentation Reviewed: Yes Provider Attestation: The documentation as recorded by the JOSE hodge accurately reflects the service I personally performed and the decisions made by me, TOMMIE ROMANO MD Status of Scribe Document: Viewed
[2019-10-16 22:33] VITALS: BP 0/0
== END 2019-10-16 22:27 | disposition home or self-care (01) ==
LOC: ED 18:13
DX: O23.42 Unspecified infection of urinary tract in pregnancy, second trimester (principal); O99.342 Other mental disorders complicating pregnancy, second trimester; F41.9 Anxiety disorder, unspecified; F43.10 Post-traumatic stress disorder, unspecified; O26.892 Other specified pregnancy related conditions, second trimester; K21.9 Gastro-esophageal reflux disease without esophagitis; Z90.49 Acquired absence of other specified parts of digestive tract; O99.332 Smoking (tobacco) complicating pregnancy, second trimester; F17.210 Nicotine dependence, cigarettes, uncomplicated; Z3A.17 17 weeks gestation of pregnancy; Z79.899 Other long term (current) drug therapy; Z88.1 Allergy status to other antibiotic agents
CPT/HCPCS: 36415; 76815; 80053; 81003; 81015; 85025; 87077; 87086; 87186; 96365; 99282; J0696

== ENCOUNTER 2022-11-03 10:08 | Inpatient (IN) ==
[2022-11-03] MEDS ORDERED: Lactated Ringers 1000 ml BAG 1,000 ML IV ONE ×2 (10:35→13:50)
[2022-11-03] MEDS ORDERED: Buffered Lidocaine 1% SYRIN 1 ml INTRADERM ONE (10:35)
[2022-11-03] MEDS ORDERED: Penicillin G Potassium IV 5,000,000 UNITS in NS 0.9% 100 ml BAG 100 ML IVPB ONE (10:35)
[2022-11-03] MEDS ORDERED: Oxytocin in LR 20,000 MILLI.UNIT/1,000 ML BAG IV SCH ×2 (11:00→16:30)
[2022-11-03 11:35] LABS: ABS Monocytes 0.6 10^3/ul (0-0.8); ABS Neutrophils 4.7 10^3/ul (1.5-7.7); Eosinophil % 0.5 %; Hematocrit 31 % (35-47); Hemoglobin 10.3 g/dL (12.0-16.0); Lymphocyte % 26.6 %; Mean Corpuscular HGB Conc 33 g/dL (31-36); Mean Corpuscular Hemoglobin 28 pg (27-31); Mean Corpuscular Volume 84 fL (80-97); Mean Platelet Volume 8.5 fL (7.4-10.4); Platelet Count 195 10^3/uL (150-450); Red Blood Count 3.69 10^6 /uL (3.70-4.87); Red Cell Distribution Width 13 % (10-15); White Blood Count 7.4 10^3/uL (3.5-10.8)
[2022-11-03] MEDS: Lactated Ringers 1000 ml BAG 1,000 ML IV SCH ×2 (11:37→14:25)
[2022-11-03] MEDS ORDERED: OBEPIDURAL (200 ML) 200 ML EPIDURAL ONE (13:42)
[2022-11-03] MEDS ORDERED: Lidocaine 1.5% EPI 1:200,000 30 ML SDV ONE (13:44)
[2022-11-03] MEDS ORDERED: Phenylephrine 40 mcg/mL 10mL (400mcg) SYRINGE IV PUSH PRN ×2 (13:50)
[2022-11-03] MEDS ORDERED: Sodium Citrate/Citric Acid LIQ 15 ML UDC PO PRN (13:50)
[2022-11-03 13:51] LABS: Urine Benzodiazepine Screen None Detected (None Detect); Urine Cannabinoids Screen Presumptive Positive (None Detect); Urine Opiates Screen None Detected (None Detect)
[2022-11-03] MEDS ORDERED: OBEPIDURAL (200 ML) 200 ML EPIDURAL SCH (14:00)
[2022-11-03] MEDS ORDERED: Lactated Ringers 1000 ml BAG 1,000 ML IV SCH (14:00)
[2022-11-03 15:41] LABS: Urine Appearance Clear; Urine Bilirubin Negative (Negative); Urine Blood 2+ (Negative); Urine Color Yellow; Urine Glucose Negative (Negative); Urine Ketones Negative (Negative); Urine Nitrite Negative (Negative); Urine Protein Negative (Negative); Urine Specific Gravity 1.016 (1.002-1.030); Urine Urobilinogen Negative (Negative)
[2022-11-03 15:48] LABS: Urine Bacteria Absent (Absent); Urine Red Blood Cell 3+(>10/hpf) (Absent); Urine White Blood Cell Trace(0-5/hpf) (Absent)
[2022-11-03] MEDS ORDERED: Varicella Virus Vaccine Live 0.5 ML VIAL SUBCUT ONE (16:16)
[2022-11-03] MEDS ORDERED: Glycerin ADULT 2.4 gm SUPP PR PRN (16:16)
[2022-11-03] MEDS ORDERED: Witch Hazel PAD JAR TOPICAL PRN (16:16)
[2022-11-03] MEDS ORDERED: Dibucaine 1% OINT 28.35 GM TUBE PR PRN (16:16)
[2022-11-04 07:33] LABS: ABS Eosinophils 0.1 10^3/ul (0-0.6); ABS Lymphocytes 2.9 10^3/ul (1.0-4.8); ABS Monocytes 0.7 10^3/ul (0-0.8); ABS Neutrophils 5.7 10^3/ul (1.5-7.7); Hematocrit 27 % (35-47); Hemoglobin 9.4 g/dL (12.0-16.0); Lymphocyte % 30.9 %; Mean Corpuscular HGB Conc 35 g/dL (31-36); Mean Corpuscular Hemoglobin 29 pg (27-31); Mean Corpuscular Volume 84 fL (80-97); Mean Platelet Volume 8.9 fL (7.4-10.4); Platelet Count 166 10^3/uL (150-450); Red Blood Count 3.25 10^6 /uL (3.70-4.87); Red Cell Distribution Width 13 % (10-15); White Blood Count 9.4 10^3/uL (3.5-10.8)
[2022-11-04] MEDS ORDERED: Varicella Virus Vaccine Live 0.5 ML VIAL SUBCUT ONE (09:00)
[2022-11-04] MEDS ORDERED: medroxyPROGESTERone ACETATE 150 MG/ML VIAL IM ONE (14:10)
[2022-11-05 08:09] VITALS: BP 108/40
== END 2022-11-05 13:04 | disposition home or self-care (01) | DRG 560 ==
LOC: MCHOBOUT 10:08 → MCHOB 11:09
PROVIDERS: ADMIT Midwife; ATTEND Midwife